=== PATIENT | female | born 1950 | race Two or more races ===

== ENCOUNTER 2017-04-02 21:43 | Observation (INO) | payer OTHER ==
[~2017-04-02] VITALS: Ht 157.5 cm; Wt 61.5 kg
[~2017-04-02 21:43] MED LIST: IBUP-1060 PO
--- NOTE | 2017-04-02 23:15 | PHYS DOC ---
Past Medical History Past Medical History: Diabetes-Type II, Hypertension Past Surgical History: No Surgical History Alcohol Use: None Drug Use: None Social History Narrative: Lives with son Adult General Chief Complaint Chief Complaint: FEVER HPI HPI Patient is a 66 year old female who presents with fever. She is here with his son who is interpreting for her. This started a week ago. She had a little bit of a cough. No vomiting or diarrhea. She has some discomfort in her upper back. She recently traveled to [place] where they have other family members. She was driven. She just got back last night. She however became sick while in [place]. Denies any bites. Son says this morning her temperature was 101. She denies any leg pain or swelling. No chest pain or difficulty breathing. No abdominal pain Review of Systems Review of Systems Constitutional: She has fever and chills Eyes: Denies change in visual acuity, redness, or eye pain HENT: Denies nasal congestion or sore throat Respiratory Slight cough; NO shortness of breath Cardiovascular: No chest pain. GI: Denies abdominal pain, nausea, vomiting, bloody stools or diarrhea : Denies dysuria or hematuria Musculoskeletal: Denies back pain or joint pain Integument: Denies rash or skin lesions Neurologic: Denies headache, focal weakness or sensory changes Endocrine: Denies polyuria or polydipsia Current Medications Current Medications Current Medications Medications (Trade) Dose Ordered Sig/Anuj Start Time Stop Time Status Last Admin Dose Admin Cefepime HCl 2 gm/ Sodium Chloride 100 ml @ 200 mls/hr 1X ONCE 04/02/17 23:30 04/02/17 23:59 DC 04/03/17 00:44 200 MLS/HR Sodium Chloride 1,000 ml @ 1,000 mls/hr 1X ONCE 04/03/17 00:45 04/03/17 01:44 DC 04/03/17 00:44 1,000 MLS/HR Allergies Allergies Allergies Coded Allergies Type Severity Reaction Last Updated Verified No Known Drug Allergies 06/10/16 No Physical Exam Physical Exam Constitutional: Well developed, well nourished, no acute distress, non-toxic appearance. HENT: Normocephalic, atraumatic, bilateral external ears normal, oropharynx moist, no oral exudates, nose normal. Eyes: PERRLA, EOMI, conjunctiva normal, no discharge. Neck: Normal range of motion, no tenderness, supple, no stridor. Cardiovascular:Heart rate regular rhythm, no murmur Lungs & Thorax: Bilateral breath sounds clear to auscultation Abdomen: Bowel sounds normal, soft, no tenderness, no masses, no pulsatile masses. Skin: Warm, dry, no erythema, no rash. Back: No tenderness, no CVA tenderness. Extremities: No tenderness, no cyanosis, no clubbing, ROM intact, no edema. Neurologic: Alert and oriented X 3, normal motor function, normal sensory function, no focal deficits noted. Psychologic: Affect normal, judgement normal, mood normal. Current Patient Data Vital Signs Vital Signs Date Time Temp Pulse Resp B/P (MAP) Pulse Ox O2 Delivery O2 Flow Rate FiO2 04/03/17 01:30 92 18 182/94 (123) 97 Room Air 04/02/17 23:10 98.6 98.6 Lab Values Laboratory Tests Test 04/02/17 23:44 04/03/17 00:45 White Blood Count 8.2 x10^3/uL (4.0-11.0) Red Blood Count 4.24 x10^6/uL (3.50-5.40) Hemoglobin 10.8 g/dL (12.0-15.5) L Hematocrit 34.6 % (36.0-47.0) L Mean Corpuscular Volume 82 fL (79-100) Mean Corpuscular Hemoglobin 26 pg (25-35) Mean Corpuscular Hemoglobin Concent 31 g/dL (31-37) Red Cell Distribution Width 13.1 % (11.5-14.5) Platelet Count 267 x10^3/uL (140-400) Neutrophils (%) (Auto) 77 % (31-73) H Lymphocytes (%) (Auto) 15 % (24-48) L Monocytes (%) (Auto) 6 % (0-9) Eosinophils (%) (Auto) 2 % (0-3) Basophils (%) (Auto) 1 % (0-3) Neutrophils # (Auto) 6.3 x10^3uL (1.8-7.7) Lymphocytes # (Auto) 1.2 x10^3/uL (1.0-4.8) Monocytes # (Auto) 0.5 x10^3/uL (0.0-1.1) Eosinophils # (Auto) 0.1 x10^3/uL (0.0-0.7) Basophils # (Auto) 0.0 x10^3/uL (0.0-0.2) Sodium Level 139 mmol/L (136-145) Potassium Level 3.9 mmol/L (3.5-5.1) Chloride Level 105 mmol/L (98-107) Carbon Dioxide Level 24 mmol/L (21-32) Anion Gap 10 (6-14) Blood Urea Nitrogen 10 mg/dL (7-20) Creatinine 0.8 mg/dL (0.6-1.0) Estimated GFR (Cockcroft-Gault) 71.8 BUN/Creatinine Ratio 13 (6-20) Glucose Level 211 mg/dL (70-99) H Lactic Acid Level 2.1 mmol/L (0.4-2.0) H Calcium Level 9.1 mg/dL (8.5-10.1) Total Bilirubin 0.2 mg/dL (0.2-1.0) Aspartate Amino Transferase (AST) 70 U/L (15-37) H Alanine Aminotransferase (ALT) 36 U/L (14-59) Alkaline Phosphatase 80 U/L (46-116) Total Protein 7.5 g/dL (6.4-8.2) Albumin 2.7 g/dL (3.4-5.0) L Albumin/Globulin Ratio 0.6 (1.0-1.7) L Urine Collection Type Unknown Urine Color Yellow Urine Clarity Clear Urine pH 6.5 Urine Specific [place] 1.010 Urine Protein Negative mg/dL (NEG-TRACE) Urine Glucose (UA) Negative mg/dL (NEG) Urine Ketones (Stick) Negative mg/dL (NEG) Urine Blood Negative (NEG) Urine Nitrite Negative (NEG) Urine Bilirubin Negative (NEG) Urine Urobilinogen Dipstick 0.2 mg/dL (0.2 mg/dL) Urine Leukocyte Esterase Negative (NEG) Urine RBC Occ /HPF (0-2) Urine WBC 1-4 /HPF (0-4) Urine Squamous Epithelial Cells Mod /LPF Urine Bacteria Moderate /HPF (0-FEW) Laboratory Tests 04/02/17 23:44 Laboratory Tests 04/02/17 23:44 EKG EKG EKG as interpreted by myself. Sinus rhythm rate of 95. Nonspecific ST changes. No ST elevation. EKG was 0001 AM Radiology/Procedures Radiology/Procedures Chest x-ray by my interpretation with blunting of the left costophrenic angle. No distinct consolidation seen Course & Med Decision Making Course & Med Decision Making Pertinent Labs and Imaging studies reviewed. (See chart for details) evaluated patient upon arrival. IV NS and blood cultures ordered. Lactic acid drawn. Cefepime IV ordered. Lab back and Lactic acid 2.1. IV fluids initiated. CXR has left costophrenic angle blunting but no consolidation. Urine has bacteria. Cefepime will cover both. Dragon Disclaimer Dragon Disclaimer This electronic medical record was generated, in whole or in part, using a voice recognition dictation system. Departure Departure Impression: Primary Impression: Fever Additional Impression: Urinary tract infection Disposition: ADMITTED INPATIENT Referrals: NO PCP (PCP) Problem Qualifiers Primary Impression: Fever Fever type: unspecified Qualified Codes: R50.9 - Fever, unspecified Additional Impression: Urinary tract infection Urinary tract infection type: site unspecified Hematuria presence: without hematuria Qualified Codes: N39.0 - Urinary tract infection, site not specified ALAN LR MD Apr 02, 2017 23:15
[2017-04-02] MEDS ORDERED: CEFEPIME HCL 2 GM in IV NORMAL SALINE 100ML 100 ML IV ONE (23:30)
[2017-04-02 23:50] LABS: BASO % 1 % (0-3); EOS % 2 % (0-3); HEMATOCRIT 34.6 % (36.0-47.0); HEMOGLOBIN 10.8 g/dL (12.0-15.5); LYMPH # 1.2 x10^3/uL (1.0-4.8); LYMPH % 15 % (24-48); MEAN CORPUSCULAR HEMOGLOBIN 26 pg (25-35); MEAN CORPUSCULAR HGB CONC 31 g/dL (31-37); MEAN CORPUSCULAR VOLUME 82 fL (79-100); MONO % 6 % (0-9); NEUT % 77 % (31-73); PLATELET COUNT 267 x10^3/uL (140-400); RED BLOOD COUNT 4.24 x10^6/uL (3.50-5.40); RED CELL DISTRIBUTION WIDTH 13.1 % (11.5-14.5); WHITE BLOOD COUNT 8.2 x10^3/uL (4.0-11.0)
[2017-04-03 00:07] LABS: ALBUMIN 2.7 g/dL (3.4-5.0); ALBUMIN/GLOBULIN RATIO 0.6 (1.0-1.7); CALCIUM 9.1 mg/dL (8.5-10.1); CREATININE 0.8 mg/dL (0.6-1.0); GFR 71.8; POTASSIUM 3.9 mmol/L (3.5-5.1); TOTAL BILIRUBIN 0.2 mg/dL (0.2-1.0); TOTAL PROTEIN 7.5 g/dL (6.4-8.2)
[2017-04-03] MEDS ORDERED: IV NORMAL SALINE 1000ML BAG 1,000 ML IV ONE (00:45)
[2017-04-03 00:59] LABS: BILIRUBIN,URINE NEGATIVE (NEG); GLUCOSE,URINE NEGATIVE (NEG); NITRITE,URINE NEGATIVE (NEG); PH,URINE 6.5; PROTEIN,URINE NEGATIVE (NEG-TRACE); UROBILINOGEN,URINE 0.2 mg/dL (0.2 mg/dL)
[2017-04-03 01:40] LABS: BACTERIA,URINE MODERATE /HPF (0-FEW); RBC,URINE OCC /HPF (0-2); SQUAMOUS EPITHELIAL CELL,UR MOD /LPF
[2017-04-03] MEDS ORDERED: ONDANSETRON PF 4 MG/2 ML VIAL. IV PRN (03:15)
[2017-04-03] MEDS ORDERED: METF500T4 PO (03:38)
[2017-04-03 05:49] VITALS: BP 147/102
[2017-04-03 07:00] VITALS: BP 165/90
--- NOTE | 2017-04-03 07:58 | EKG ---
[facility] [address] [place] [address] Test Date: 2017-04-03 Test Time: 00:01:06 Pat Name: MIKE ALEJANDRO Department: Room: 576 1 Gender: F Manufacturing Manager: : 1950 Requested By: ALAN LR Order Number: [id number] Reading MD: Sean Merino Measurements Intervals Belle Rate: 95 P: 43 CT: 106 QRS: 21 QRSD: 76 T: 63 QT: 346 QTc: 438 Interpretive Statements SINUS RHYTHM CANNOT RULE OUT ANTEROSEPTAL MYOCARDIAL DAMAGE T ABNORMALITY IN ANTERIOR LEADS Electronically Signed On 04-07-2017 14:46:22 CDT by Sean Merino
--- NOTE | 2017-04-03 08:31 | RAD ---
Indication fever. Protocol study. A single view of the chest was obtained. No prior imaging is available. Heart size is minimally enlarged. There is no congestive heart failure. There is volume loss in the left lower lobe which may reflect pleural fluid and atelectasis. Underlying pneumonia is not entirely excluded. The right hemithorax is clear. IMPRESSION: Volume loss in the left lower lobe. See above discussion. Mild cardiomegaly
[2017-04-03] MEDS ORDERED: CEFEPIME HCL 2 GM in IV NORMAL SALINE 100ML 100 ML IV SCH (09:00)
[2017-04-03 10:57] VITALS: BP 146/79
[2017-04-03] MEDS ORDERED: ACETAMINOPHEN 650 MG/20.3 ML SOLUTION. PEG PRN (12:45)
[2017-04-03] MEDS ORDERED: DEXTROSE 50% 25 GM / 50ML DISP.SYRIN. IV PRN (12:45)
[2017-04-03] MEDS: LISINOPRIL 5 MG TABLET. PO SCH (14:25)
[2017-04-03 15:00] VITALS: BP 148/80
--- NOTE | 2017-04-03 15:00 | RAD ---
Indication abnormal chest x-ray. Axial noncontrast images through the chest were obtained. No prior CT imaging of the chest is available. Note is made of a plain film examination of the chest yesterday. Imaging through the upper abdomen is unremarkable. There are markedly calcified nodules in both lobes of the thyroid right greater than left. These could be further evaluated with nonemergent ultrasound. There are a few mediastinal lymph nodes. Definite pathologic hilar or mediastinal adenopathy is not seen. There is a small left pleural effusion. There is some minimal volume loss at the left lung base compatible with passive atelectasis associated with the pleural fluid. A consolidated pneumonia in either lung is not seen. Small blebs or bulla are seen in the upper lobes. A dominant soft tissue mass in either lung is not seen. There are sclerotic changes seen associated with a midthoracic thoracic vertebral body segment. The etiology is unclear. Paget's disease or fibrous dysplasia could account for the appearance. Given the isolated nature metastatic disease would be less likely but cannot be entirely excluded. If clinically warranted additional evaluation could be obtained with bone scan or MRI. IMPRESSION: No acute or definite significant finding in the chest. Small left pleural effusion. Minimal volume loss at the left lung base likely reflects atelectasis. Sclerotic focus seen associated with a midthoracic vertebral body segment. The etiology is not clear Calcified thyroid nodules PQRS Compliance Statement: One or more of the following individualized dose reduction techniques were utilized for this examination: 1. Automated exposure control 2. Adjustment of the mA and/or kV according to patient size 3. Use of iterative reconstruction technique
--- NOTE | 2017-04-03 15:28 | HP ---
ADMIT DATE: 04/03/2017 CHIEF COMPLAINT: Fevers. 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 She herself relates that she actually had fevers for a whole month and had been in the hospital previously for this and had been given medications for this. However, in discussion with her son, it becomes clear that the patient is demented, and fevers actually just started about a week ago. She refers to having seen her new primary care physician at about a month ago at which time she was given medication for diabetes. The patient endorses leg pain and headaches, which according to son are chronic. She denies any shortness of breath, chest pain, abdominal pain, diarrhea, or dysuria. Her son explains that the fever started about a week ago, not accompanied by any other symptoms apparently and he gave her ibuprofen with resolution of fevers only temporarily. He finally decided to bring her into the hospital. In the Emergency Room, she was found with signs of UTI as well as a questionable infiltrate on chest x-ray and therefore, admitted and placed on cefepime. PAST MEDICAL HISTORY: Hypertension, diabetes, dementia. FAMILY HISTORY: Unknown. SOCIAL HISTORY: Originally from [facility], living with her family here. Continues to smoke about 3-4 cigarettes a day. No alcohol, no drugs. ALLERGIES: No known drug allergies. HOME MEDICATIONS: Reconciled with MAR. REVIEW OF SYSTEMS: Save for headaches and chronic leg pain. Rest of organ system review is negative. PHYSICAL EXAMINATION: VITAL SIGNS: Show blood pressure of 146/79, heart rate of 91, respiratory rate at 22. She is afebrile and has been the entire hospitalization since ER. GENERAL: This is a well-nourished, well-developed, 66-year-old [facility] woman, awake, alert, in no acute distress. HEENT: Shows no scleral icterus. NECK: Supple. Lipoma palpable in the supraclavicular space on the left. No lymphadenopathy. LUNGS: Clear. HEART: Has regular rate and rhythm. ABDOMEN: Has positive bowel sounds, soft, nontender. EXTREMITIES: Show no edema. SKIN: Warm, soft and dry without any rash. LABORATORY DATA: CBC with a WBC of 8.2, hemoglobin 10.8, MCV of 82, platelets of 267. Chemistries with a BUN and creatinine of 10 and 0.8, normal electrolytes, glucose at 211. LFTs with AST at 70, rest is normal. Albumin at 2.7. Urine with 1-2 wbc and moderate bacteria i.e. a dirty collection. IMAGING STUDIES: Chest x-ray obtained in the Emergency Room shows volume loss in the left lower lobe, which may reflect pleural fluid and/or atelectasis. Pneumonia cannot be excluded. ASSESSMENT AND PLAN: The patient is a 66-year-old woman with reported fevers for the past week. There is no clear cut sign of infection by clinical exam or labs or imaging. We will stop cefepime for now. Monitor her vital signs closely. Because of the question in her chest x-ray, we will obtain a noncontrast CT to further elucidate. Her blood sugars are currently poorly controlled. She is on metformin at home. We will add insulin sliding scale to this here. Blood pressure likewise is elevated. We will start lisinopril. Prophylaxis will be obtained with Lovenox. MARCO KUMARI MD DR: KATHRIN/nts JOB#: [id number] / [id number] RAFIQ
[2017-04-03] MEDS ORDERED: metFORMIN 500 MG TABLET PO SCH (17:00)
[2017-04-03] MEDS: metFORMIN 500 MG TABLET PO SCH (17:11)
[2017-04-03] MEDS: INSULIN ASPART 300 UNITS/3 ML INSULN.PEN SQ SCH (17:28)
[2017-04-03 19:00] VITALS: BP 138/81
[2017-04-03 23:00] VITALS: BP 138/81
--- NOTE | 2017-04-04 02:00 | ACF ---
Admission Forms Criteria URINARY COMPLICATIONS Clinical Indications for Inpatient Care (Place 'X' for any and all applicable criteria): Ongoing inpatient care may be indicated for urinary complications with ANY ONE of the following: [ X]I. Urinary tract infection requiring inpatient care as indicated by ANY ONE of the following(8)(19)(20): [ ]a) Severe symptoms (eg, high fever, severe pain) [ ]b) Vomiting or dehydration requiring ongoing inpatient care [ X]c) IV antibiotic needs that cannot be managed at lower level of care [ ]d) Hemodynamic instability [ ]e) Obstruction of collecting system by stone or tumor [ ]II. Urinary retention requiring drainage or surgery (3)(4)(5)(17)(18) [ ]III. Renal failure (Use Renal Failure Criteria for further information.) [ ]IV. Oliguria(30) [ ]V. Post obstructive diuresis requiring close monitoring of urine output and intravenous compensation for excessive fluid losses(33) Extended stay beyond goal length of stay for primary condition may be needed until ALL of the following are present(3)(4)(5)(8): [ ]a) Renal function (creatinine) at baseline, or daily decreases in creatinine consistent with renal function return [ ]b) Voiding adequately or with urinary catheter or percutaneous suprapubic tube and management regimen in place that is performable at lower level of care. [ ]c) Urine output adequate [ ]d) Fever absent or resolving [ ]e) Infection absent or treatable at next level of care The original [employer] content created by [employer] has been revised. The portions of the content which have been revised are identified through the use of italic text or in bold, and [facility] has neither reviewed nor approved the modified material. All other unmodified content is copyright [facility] Please see references footnoted in the original [facility] edition 2016 Admission Criteria Met?: Yes DERRELL REGAN Apr 04, 2017 02:00
[2017-04-04 03:21] VITALS: BP 142/86
[2017-04-04 04:56] LABS: BASO % 1 % (0-3); EOS % 2 % (0-3); HEMATOCRIT 34.4 % (36.0-47.0); HEMOGLOBIN 11.1 g/dL (12.0-15.5); LYMPH # 1.4 x10^3/uL (1.0-4.8); LYMPH % 18 % (24-48); MEAN CORPUSCULAR HEMOGLOBIN 26 pg (25-35); MEAN CORPUSCULAR HGB CONC 32 g/dL (31-37); MEAN CORPUSCULAR VOLUME 81 fL (79-100); MONO % 6 % (0-9); NEUT % 73 % (31-73); PLATELET COUNT 279 x10^3/uL (140-400); RED BLOOD COUNT 4.28 x10^6/uL (3.50-5.40); RED CELL DISTRIBUTION WIDTH 13.3 % (11.5-14.5); WHITE BLOOD COUNT 7.9 x10^3/uL (4.0-11.0)
[2017-04-04 07:00] VITALS: BP 139/94
[2017-04-04] MEDS: LISINOPRIL 5 MG TABLET. PO SCH (08:34)
[2017-04-04] MEDS: metFORMIN 500 MG TABLET PO SCH ×2 (08:34→16:44)
[2017-04-04] MEDS: INSULIN ASPART 300 UNITS/3 ML INSULN.PEN SQ SCH ×3 (08:39→16:48)
[2017-04-04 10:58] VITALS: BP 142/81
[2017-04-04 14:59] VITALS: BP 135/85
--- NOTE | 2017-04-04 15:08 | PDOC ---
PROGRESS NOTES Chief Complaint Chief Complaint Fevers ASSESSMENT AND PLAN: 1. Fevers: no infectious source. no recurrence in hospital. received cefepime x1 for suspected UTI, but only low grade nina; CT chest neg as well. 2. DM: poorly controlled. metformin and ISS. just recently started. will leave med adjustment to PCP 3. HTN: previously not on meds. lisinopril started 4. Dementia: at baseline per son 5. Prophylaxis: Lovenox 6. 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 some (chronic) aches and pain. no acute issues Vitals Vitals Vital Signs Date Time Temp Pulse Resp B/P (MAP) Pulse Ox O2 Delivery O2 Flow Rate FiO2 04/04/17 14:59 97.9 84 18 135/85 (102) 98 Room Air 97.9 Physical Exam General: Alert, Cooperative Heart: Regular rate Lungs: Clear Abdomen: Normal bowel sounds, No tenderness Extremities: No edema Skin: No rashes Labs LABS Laboratory Tests Test 04/03/17 16:37 04/04/17 04:00 04/04/17 07:40 04/04/17 10:33 Glucose (Fingerstick) 320 mg/dL (70-99) 152 mg/dL (70-99) 112 mg/dL (70-99) White Blood Count 7.9 x10^3/uL (4.0-11.0) Red Blood Count 4.28 x10^6/uL (3.50-5.40) Hemoglobin 11.1 g/dL (12.0-15.5) Hematocrit 34.4 % (36.0-47.0) Mean Corpuscular Volume 81 fL (79-100) Mean Corpuscular Hemoglobin 26 pg (25-35) Mean Corpuscular Hemoglobin Concent 32 g/dL (31-37) Red Cell Distribution Width 13.3 % (11.5-14.5) Platelet Count 279 x10^3/uL (140-400) Neutrophils (%) (Auto) 73 % (31-73) Lymphocytes (%) (Auto) 18 % (24-48) Monocytes (%) (Auto) 6 % (0-9) Eosinophils (%) (Auto) 2 % (0-3) Basophils (%) (Auto) 1 % (0-3) Neutrophils # (Auto) 5.8 x10^3uL (1.8-7.7) Lymphocytes # (Auto) 1.4 x10^3/uL (1.0-4.8) Monocytes # (Auto) 0.5 x10^3/uL (0.0-1.1) Eosinophils # (Auto) 0.2 x10^3/uL (0.0-0.7) Basophils # (Auto) 0.0 x10^3/uL (0.0-0.2) MARCO KUMARI MD Apr 04, 2017 15:08
[2017-04-04] MEDS ORDERED: LISI-338 PO (16:30)
--- NOTE | 2017-04-07 00:12 | DS ---
DATE OF DISCHARGE: 04/04/2017 CHIEF COMPLAINT: UTI. HOSPITAL COURSE: The patient is a 66-year-old [facility] woman who presented with a 1-week history of recurrent fevers without apparent etiology. She had been diagnosed with diabetes recently at [facility] and had been started on metformin. Her son brought her in with recurrent fevers. In the ER, she was found with possibly a UTI and admitted for this. Further workup, however, revealed no urinary tract infection. Fever is completely resolved. Antibiotics were held and the patient was discharged on the 04/04/2017 to home. The patient was found to be mildly hypertensive. Given her recent diagnosis of diabetes, she should be started on an KRISTEL inhibitor; 5 mg of lisinopril was prescribed in hospital and at discharge. DISCHARGE PHYSICAL EXAMINATION: VITAL SIGNS: Blood pressure of 135/85, heart rate of 84, respiratory rate at 18. She is afebrile. GENERAL: This is a well-nourished 66-year-old [facility] woman, alert, slightly confused, in no acute distress. HEENT: Shows no scleral icterus. Dentition is poor. LUNGS: Clear. HEART: Has regular rate and rhythm. ABDOMEN: Has positive bowel sounds, soft, nontender. EXTREMITIES: Show no edema. DISCHARGE DIAGNOSIS: Fevers. DISCHARGE DISPOSITION: To home. DISCHARGE CONDITION: Improved. DISCHARGE MEDICATIONS: Please refer to MAR. DISCHARGE INSTRUCTIONS: The patient will follow up with PCP. MARCO KUMARI MD DR: KATHRIN/nts JOB#: [id number] / [id number]
== END 2017-04-04 18:24 | disposition home or self-care (01) ==
LOC: ER 21:43 → 5 SOUTH 04-03 02:55
PROVIDERS: ADMIT Internal Medicine; ATTEND Internal Medicine
DX: R50.9 Fever, unspecified (principal); I10 Essential (primary) hypertension; E11.9 Type 2 diabetes mellitus without complications; F03.90 Unspecified dementia, unspecified severity, without behavioral disturbance, psychotic disturbance, mood disturbance, and anxiety; G89.29 Other chronic pain; N39.0 Urinary tract infection, site not specified; F17.210 Nicotine dependence, cigarettes, uncomplicated
CPT/HCPCS: 36415; 71010; 71250; 80053; 81001; 82962; 83605; 85027; 87040; 87086; 93005; 96365; 96372; 96375; 99285; G0378; J0692; J1815; J7030; G0379

== ENCOUNTER 2018-08-25 15:04 | Emergency (ER) | payer OTHER ==
[~2018-08-25] VITALS: Ht 152.4 cm; Wt 61.2 kg
[~2018-08-25 15:04] MED LIST changes: +LISI-338 PO; +METF500T16 PO
[2018-08-25 15:47] LABS: BILIRUBIN,URINE NEGATIVE (NEG); CLARITY,URINE CLEAR; COLOR,URINE YELLOW; NITRITE,URINE NEGATIVE (NEG); PROTEIN,URINE NEGATIVE (NEG-TRACE); UROBILINOGEN,URINE 0.2 mg/dL (0.2 mg/dL)
[2018-08-25 15:57] LABS: BACTERIA,URINE 0 /HPF (0-FEW); RBC,URINE 0 /HPF (0-2); SQUAMOUS EPITHELIAL CELL,UR FEW /LPF; WBC,URINE 20-40 /HPF (0-4); YEAST,URINE PRESENT /HPF
[2018-08-25] MEDS ORDERED: CEPH-264 PO (16:11)
[2018-08-25] MEDS ORDERED: CLOT15CR4 TP (16:11)
--- NOTE | 2018-08-25 16:11 | PHYS DOC ---
Past Medical History Past Medical History: Diabetes-Type II, Hypertension Past Surgical History: No Surgical History Alcohol Use: None Drug Use: None Adult General Chief Complaint Chief Complaint: VAGINAL PROBLEM HPI HPI Patient is a 67 year old female who comes to the emergency Department today complaining of a itchy rash in her bilateral groins and labia for the last week. Patient denies any vaginal discharge, vaginal bleeding, abdominal pain, nausea, vomiting, or diarrhea. She reports pain with urination. Patient denies any hematuria or incontinence. Patient states she has been putting Vaseline on the rash but has not been helping to reduce her symptoms. Patient denies any irregular vaginal odor or foul smelling urine. Review of Systems Review of Systems Constitutional: Denies fever or chills [] Eyes: Denies change in visual acuity, redness, or eye pain [] HENT: Denies nasal congestion or sore throat [] Respiratory: Denies cough or shortness of breath [] Cardiovascular: No additional information not addressed in HPI [] GI: Denies abdominal pain, nausea, vomiting, or diarrhea [] : Denies incontinence or hematuria; reports dysuria Integument:See HPI Neurologic: Denies headache, focal weakness or sensory changes [] All other systems were reviewed and found to be within normal limits, except as documented in this note. Allergies Allergies Allergies Coded Allergies Type Severity Reaction Last Updated Verified No Known Drug Allergies 06/10/16 No Physical Exam Physical Exam Constitutional: Well developed, well nourished, no acute distress, non-toxic appearance. [] HENT: Normocephalic, atraumatic, bilateral external ears normal, nose normal. [] : scaly erythremic rash noted in bilateral groins and external labia consistent with jock itch, no irregular vaginal discharge or odor noted. Skin: Warm, dry, Neurologic: Alert and oriented X 3, normal motor function, normal sensory function, no focal deficits noted. [] Psychologic: Affect normal, judgement normal, mood normal. [] Current Patient Data Vital Signs Vital Signs Date Time Temp Pulse Resp B/P (MAP) Pulse Ox O2 Delivery O2 Flow Rate FiO2 08/25/18 16:31 196/100 (132) 08/25/18 15:25 97.8 98 16 95 Room Air 97.8 Lab Values Laboratory Tests Test 08/25/18 15:16 Urine Collection Type Unknown Urine Color Yellow Urine Clarity Clear Urine pH 5.0 Urine Specific [place] 1.025 Urine Protein Negative mg/dL (NEG-TRACE) Urine Glucose (UA) >=1000 mg/dL (NEG) Urine Ketones (Stick) Negative mg/dL (NEG) Urine Blood Negative (NEG) Urine Nitrite Negative (NEG) Urine Bilirubin Negative (NEG) Urine Urobilinogen Dipstick 0.2 mg/dL (0.2 mg/dL) Urine Leukocyte Esterase Negative (NEG) Urine RBC 0 /HPF (0-2) Urine WBC 20-40 /HPF (0-4) Urine Squamous Epithelial Cells Few /LPF Urine Bacteria 0 /HPF (0-FEW) Urine Yeast Present /HPF EKG EKG [] Radiology/Procedures Radiology/Procedures [] Course & Med Decision Making Course & Med Decision Making Pertinent Labs and Imaging studies reviewed. (See chart for details) [] Dragon Disclaimer Dragon Disclaimer This electronic medical record was generated, in whole or in part, using a voice recognition dictation system. Departure Departure Impression: Primary Impression: Jock itch Additional Impressions: UTI (urinary tract infection) Hypertension Disposition: 01 HOME, SELF-CARE Condition: STABLE Referrals: JENN STEPHEN MD (PCP) Patient Instructions: Jock Itch, [id number], Urinary Tract Infection, Easy-to -Read Additional Instructions: Fill prescription(s) and use as directed. Take your blood pressure medication as prescribed, recommend that you check your BP twice daily and keep a log of blood pressures. Avoid bladder irritants such as caffeine, carbonation, and spicy foods. Increase clear fluids. Follow up with your primary care doctor next week for recheck of rash and blood pressure, return to the ER if symptoms worsen. Scripts Cephalexin (KEFLEX) 500 Mg Capsule 1 CAP PO BID, #14 CAP 0 Refills Prov: [employer] 08/25/18 Clotrimazole (CLOTRIMAZOLE) 15 Gm Cream..g. 1 BASILIO TP BID, #30 GM 0 Refills Prov: [employer] 08/25/18 Problem Qualifiers Additional Impressions: UTI (urinary tract infection) Urinary tract infection type: site unspecified Hematuria presence: without hematuria Qualified Codes: N39.0 - Urinary tract infection, site not specified [employer] Aug 25, 2018 16:11
[2018-08-25 16:39] VITALS: BP 208/102
[2018-08-25] MEDS ORDERED: cloNIDine HCL 0.1 MG TABLET PO ONE (16:45)
== END 2018-08-25 16:39 | disposition home or self-care (01) ==
LOC: ER 15:04
DX: N39.0 Urinary tract infection, site not specified (principal); B35.6 Tinea cruris; I10 Essential (primary) hypertension; E11.9 Type 2 diabetes mellitus without complications
CPT/HCPCS: 81001; 87086; 99283

== ENCOUNTER 2018-10-31 02:08 | Emergency (ER) | payer MEDICARE, OTHER ==
[~2018-10-31] VITALS: Ht 154.9 cm; Wt 54.4 kg
[~2018-10-31 02:08] MED LIST changes: +CEPH-264 PO; +CLOT15CR4 TP
[2018-10-31 02:17] VITALS: BP 160/99
[2018-10-31] MEDS ORDERED: ACETAMINOPHEN 500 MG TABLET PO ONE (03:30)
[2018-10-31 03:48] LABS: INFLUENZA A PATIENT NEGATIVE (NEGATIVE); INFLUENZA B PATIENT NEGATIVE (NEGATIVE)
[2018-10-31 04:35] LABS: BILIRUBIN,URINE NEGATIVE (NEG); CLARITY,URINE CLEAR; COLOR,URINE YELLOW; NITRITE,URINE NEGATIVE (NEG); PH,URINE 5.5; PROTEIN,URINE NEGATIVE (NEG-TRACE); UROBILINOGEN,URINE 0.2 mg/dL (0.2 mg/dL)
[2018-10-31 04:56] LABS: BACTERIA,URINE FEW /HPF (0-FEW); RBC,URINE OCC /HPF (0-2); SQUAMOUS EPITHELIAL CELL,UR MOD /LPF
--- NOTE | 2018-10-31 05:47 | PHYS DOC ---
Past Medical History Past Medical History: Diabetes-Type II, Hypertension Past Surgical History: No Surgical History Alcohol Use: None Drug Use: None Adult General Chief Complaint Chief Complaint: FEVER HPI HPI Patient is a 67 year old F P/W CC OF COUGH VOMITING, SUBJECTIVE FEVER AND SORE THROAT. HX OF HTN CHECKED INTO ER WITH SIMILAR SYMPTOMS. MODERATE SYMPTOMS X TWO DAYS, NO ALLEVIATING FACTORS Review of Systems Review of Systems Constitutional: Eyes: Denies change in visual acuity, redness, or eye pain [] HENT: Denies nasal congestion or sore throat [] Respiratory: Cardiovascular: No additional information not addressed in HPI [] GI: Denies abdominal pain, bloody stools or diarrhea [] : Denies dysuria or hematuria [] Neurologic: Denies headache, focal weakness or sensory changes [] Endocrine: Denies polyuria or polydipsia [] All other systems were reviewed and found to be within normal limits, except as documented in this note. Current Medications Current Medications Current Medications Medications (Trade) Dose Ordered Sig/Anuj Start Time Stop Time Status Last Admin Dose Admin Acetaminophen (Tylenol) 1,000 mg 1X ONCE 10/31/18 03:30 10/31/18 03:32 DC 10/31/18 03:21 1,000 MG Allergies Allergies Allergies Coded Allergies Type Severity Reaction Last Updated Verified No Known Drug Allergies 06/10/16 No Physical Exam Physical Exam Constitutional: Well developed, well nourished, no acute distress, non-toxic appearance. [] HENT: Normocephalic, atraumatic, bilateral external ears normal, oropharynx moist, no oral exudates, nose normal. [] Eyes: PERRLA, EOMI, conjunctiva normal, no discharge. [] Neck: Normal range of motion, no tenderness, supple, no stridor. [] Cardiovascular:Heart rate regular rhythm, no murmur [] Lungs & Thorax: Bilateral breath sounds clear to auscultation [] Abdomen: Bowel sounds normal, soft, no tenderness, no masses, no pulsatile masses. [] Skin: Warm, dry, no erythema, no rash. [] Back: No tenderness, no CVA tenderness. [] Extremities: No tenderness, no cyanosis, no clubbing, ROM intact, no edema. [] Neurologic: Alert and oriented X 3, normal motor function, normal sensory function, no focal deficits noted. [] Psychologic: Affect normal, judgement normal, mood normal. [] Current Patient Data Vital Signs Vital Signs Date Time Temp Pulse Resp B/P (MAP) Pulse Ox O2 Delivery O2 Flow Rate FiO2 10/31/18 02:17 97.5 86 20 160/99 (119) 97 Room Air 97.5 Lab Values Laboratory Tests Test 10/31/18 03:20 10/31/18 04:28 Influenza Type A Antigen Negative (NEGATIVE) Influenza Type B Antigen Negative (NEGATIVE) Urine Collection Type Unknown Urine Color Yellow Urine Clarity Clear Urine pH 5.5 Urine Specific [place] 1.020 Urine Protein Negative mg/dL (NEG-TRACE) Urine Glucose (UA) Negative mg/dL (NEG) Urine Ketones (Stick) Negative mg/dL (NEG) Urine Blood Negative (NEG) Urine Nitrite Negative (NEG) Urine Bilirubin Negative (NEG) Urine Urobilinogen Dipstick 0.2 mg/dL (0.2 mg/dL) Urine Leukocyte Esterase Small (NEG) Urine RBC Occ /HPF (0-2) Urine WBC 5-10 /HPF (0-4) Urine Squamous Epithelial Cells Mod /LPF Urine Bacteria Few /HPF (0-FEW) Urine Mucus Mod /LPF EKG EKG [] Radiology/Procedures Radiology/Procedures [] Impressions: CXR MY READ NEG ACUTE Course & Med Decision Making Course & Med Decision Making Pertinent Labs and Imaging studies reviewed. (See chart for details) 67 YO F P/W COUGH SUBJ FEVER SORE THROAT VOMITING AT HOME. CXR, FLU SWAB RAPID STREP NEG ACUTE. VITALS LOOK PRETTY GOOD. U/A LIKELY CONTAMINANT, NO DYSURIA, WILL SEND FOR CULTURE. PT OVERALL WELL APPEARING SUPPLE NECK, REASSURANCE PROVIDED, RETURN PREC DISCUSSED [] Dragon Disclaimer Dragon Disclaimer This electronic medical record was generated, in whole or in part, using a voice recognition dictation system. Departure Departure Impression: Primary Impression: Viral syndrome Disposition: HOME, SELF-CARE Condition: STABLE Patient Instructions: Viral Syndrome RODRIGO DIEGO MD Oct 31, 2018 05:47
--- NOTE | 2018-10-31 07:57 | RAD ---
Portable chest, 10/31/2018: HISTORY: Fever Comparison is made to a study from 04/03/2017. The heart is enlarged. There is calcific plaquing of the aorta. The pulmonary vascularity is normal. No pulmonary infiltrate is seen. There is no evidence of pleural fluid. The bony structures are demineralized. IMPRESSION: 1. Cardiomegaly and aortic atherosclerosis. 2. No acute cardiopulmonary abnormality is detected. Electronically signed by: Jeb Thompson MD (10/31/2018 7:54 AM) [facility]
== END 2018-10-31 05:40 | disposition home or self-care (01) ==
LOC: ER 02:08
DX: B34.9 Viral infection, unspecified (principal); E11.9 Type 2 diabetes mellitus without complications; I10 Essential (primary) hypertension
CPT/HCPCS: 71045; 81001; 87070; 87086; 87804; 87880; 99284

== ENCOUNTER 2021-04-17 11:48 | Emergency (ER) | payer OTHER ==
[~2021-04-17] VITALS: Ht 152.4 cm; Wt 52.5 kg
[~2021-04-17 11:48] MED LIST changes: +CLOT15CR23 TP; -CLOT15CR4 TP; -LISI-338 PO; +LISI-517 PO
[2021-04-17] MEDS ORDERED: LABETALOL 20 MG/4 ML DISP.SYRIN. IVP ONE (13:15)
[2021-04-17 13:40] LABS: BASO # 0.1 x10^3/uL (0.0-0.2); BASO % 1 % (0-3); EOS # 0.2 x10^3/uL (0.0-0.7); EOS % 2 % (0-3); HEMATOCRIT 34.2 % (36.0-47.0); HEMOGLOBIN 11.2 g/dL (12.0-15.5); LYMPH # 1.6 x10^3/uL (1.0-4.8); LYMPH % 19 % (24-48); MEAN CORPUSCULAR HEMOGLOBIN 27 pg (25-35); MEAN CORPUSCULAR HGB CONC 33 g/dL (31-37); MEAN CORPUSCULAR VOLUME 81 fL (79-100); MONO # 0.4 x10^3/uL (0.0-1.1); MONO % 5 % (0-9); NEUT # 6.2 x10^3/uL (1.8-7.7); NEUT % 74 % (31-73); PLATELET COUNT 220 x10^3/uL (140-400); RED BLOOD COUNT 4.22 x10^6/uL (3.50-5.40); RED CELL DISTRIBUTION WIDTH 14.7 % (11.5-14.5); WHITE BLOOD COUNT 8.4 x10^3/uL (4.0-11.0)
[2021-04-17 13:52] LABS: CALCIUM 9.4 mg/dL (8.5-10.1); CREATININE 0.9 mg/dL (0.6-1.0); GFR 61.9; POTASSIUM 4.1 mmol/L (3.5-5.1)
--- NOTE | 2021-04-17 13:54 | RAD ---
EXAM: Chest, single view. HISTORY: Shortness of breath. COMPARISON: 10/31/2018. FINDINGS: A frontal view of the chest is obtained. There is stable mild central predominant interstit ial prominence. There is no jaquelin congestion. There is no focal infiltrate, protrusion or pneumothora x. There is a stable prominent cardiac silhouette. IMPRESSION: No acute pulmonary finding. Electronically signed by: Natalie Martinez MD (04/17/2021 1:51 PM) [id number]
[2021-04-17 13:58] LABS: ALBUMIN 3.3 g/dL (3.4-5.0); ALBUMIN/GLOBULIN RATIO 0.8 (1.0-1.7); C-REACTIVE PROTEIN 4.1 mg/L (0-3.3); TOTAL BILIRUBIN 0.2 mg/dL (0.2-1.0); TOTAL PROTEIN 7.5 g/dL (6.4-8.2)
--- NOTE | 2021-04-17 14:15 | ED.ADGEN ---
Past Medical History Past Medical History: Diabetes-Type II, Hypertension Past Surgical History: No Surgical History Smoking Status: Never Smoker Alcohol Use: None Drug Use: None General Adult EDM: Chief Complaint: SORE THROAT HPI: HPI: Of note, history is significantly limited due to language barrier. An full time staff interpreter was used, however patient does not respond to the full time staff interpreter. Placement Coordinator did interpret anything the patient said on her own but the patient did not answer any of the interpreters questions. Patient is complaining of right-sided pain in her neck and lower jaw for an unknown amount of time. Unknown whether there are additional symptoms. Patient does have a history of hypertension and is hypertensive. Unclear whether she is taking her medications. Review of Systems: Review of Systems: Unable to obtain Current Medications: Current Medications Medications (Trade) Dose Ordered Sig/Anuj Start Time Stop Time Status Last Admin Dose Admin Labetalol HCl (Normodyne Iv Push) 20 mg 1X ONCE 04/17/21 13:15 04/17/21 13:16 DC 04/17/21 14:22 20 MG Allergies: Allergies: Allergies Coded Allergies Type Severity Reaction Last Updated Verified No Known Drug Allergies 06/10/16 No Physical Exam: PE: General: Awake, alert, NAD. Well Nourished, well hydrated. Cooperative HEENT: Atraumatic, EOMI, PERRL, airway patent, moist oral mucosa, posterior oropharynx appears normal Neck: Supple, trachea midline Respiratory: CTA bilaterally, normal effort, no wheezing/crackles CV: RRR, no murmur, cap refill <2 GI: Soft, nondistended, nontender, no masses MSK: No obvious deformities Skin: Warm, dry, intact Neuro: A&O x3, speech NL, sensory and motor grossly intact, no focal deficits Psych: Normal affect, normal mood, not suicidal or homicidal Current Patient Data: Labs: Laboratory Tests Test 04/17/21 13:13 04/17/21 13:28 SARS-CoV-2 Antigen (Rapid) Negative (NEGATIVE) White Blood Count 8.4 x10^3/uL (4.0-11.0) Red Blood Count 4.22 x10^6/uL (3.50-5.40) Hemoglobin 11.2 g/dL (12.0-15.5) L Hematocrit 34.2 % (36.0-47.0) L Mean Corpuscular Volume 81 fL (79-100) Mean Corpuscular Hemoglobin 27 pg (25-35) Mean Corpuscular Hemoglobin Concent 33 g/dL (31-37) Red Cell Distribution Width 14.7 % (11.5-14.5) H Platelet Count 220 x10^3/uL (140-400) Neutrophils (%) (Auto) 74 % (31-73) H Lymphocytes (%) (Auto) 19 % (24-48) L Monocytes (%) (Auto) 5 % (0-9) Eosinophils (%) (Auto) 2 % (0-3) Basophils (%) (Auto) 1 % (0-3) Neutrophils # (Auto) 6.2 x10^3/uL (1.8-7.7) Lymphocytes # (Auto) 1.6 x10^3/uL (1.0-4.8) Monocytes # (Auto) 0.4 x10^3/uL (0.0-1.1) Eosinophils # (Auto) 0.2 x10^3/uL (0.0-0.7) Basophils # (Auto) 0.1 x10^3/uL (0.0-0.2) Sodium Level 140 mmol/L (136-145) Potassium Level 4.1 mmol/L (3.5-5.1) Chloride Level 104 mmol/L (98-107) Carbon Dioxide Level 24 mmol/L (21-32) Anion Gap 12 (6-14) Blood Urea Nitrogen 13 mg/dL (7-20) Creatinine 0.9 mg/dL (0.6-1.0) Estimated GFR (Cockcroft-Gault) 61.9 BUN/Creatinine Ratio 14 (6-20) Glucose Level 193 mg/dL (70-99) H Calcium Level 9.4 mg/dL (8.5-10.1) Total Bilirubin 0.2 mg/dL (0.2-1.0) Aspartate Amino Transferase (AST) 14 U/L (15-37) L Alanine Aminotransferase (ALT) 13 U/L (14-59) L Alkaline Phosphatase 67 U/L (46-116) Troponin I Quantitative < 0.017 ng/mL (0.000-0.055) C-Reactive Protein, Quantitative 4.1 mg/L (0-3.3) H Total Protein 7.5 g/dL (6.4-8.2) Albumin 3.3 g/dL (3.4-5.0) L Albumin/Globulin Ratio 0.8 (1.0-1.7) L Laboratory Tests 04/17/21 13:28 Laboratory Tests 04/17/21 13:28 Vital Signs: Vital Signs Date Time Temp Pulse Resp B/P (MAP) Pulse Ox O2 Delivery O2 Flow Rate FiO2 04/17/21 15:25 82 17 220/90 (133) 97 Room Air 04/17/21 12:33 97.8 97.8 EKG: EKG: [] Heart Score: C/O Chest Pain: N/A Risk Factors: Risk Factors: DM, Current or recent (<one month) smoker, HTN, HLP, family history of CAD, obesity. Risk Scores: Score 0 - 3: 2.5% MACE over next 6 weeks - Discharge Home Score 4 - 6: 20.3% MACE over next 6 weeks - Admit for Clinical Observation Score 7 - 10: 72.7% MACE over next 6 weeks - Early Invasive Strategies Radiology/Procedures: Radiology/Procedures: [] Course & Med Decision Making: Course & Med Decision Making Pertinent Labs and Imaging studies reviewed. (See chart for details) Patient presents to the emergency room complaining of pain under the right side of her jaw. Patient's oropharynx appears normal. Tongue appears normal. Teeth appear normal. It is very difficult to obtain a history from the patient. She is significantly hypertensive. Given this a full work-up will be done including lab work, CT of the face, chest x-ray. CT shows possible abscesses. Patient is requesting to leave. Blood pressure remains high. Patient has requested to leave AGAINST MEDICAL ADVICE. I have discussed the benefits of staying for a full work up and the patient would like to leave. I discussed the risks of leaving including but not limited to , permenant end-organ damage, worsening of condition and patient stated understanding. Patient signed out against medical advice. Dragon Disclaimer: Dragon Disclaimer: This electronic medical record was generated, in whole or in part, using a voice recognition dictation system. Departure Departure Impression: Primary Impression: Jaw pain Additional Impression: Hypertension Disposition: LEFT AGAINST MEDICAL ADVICE Condition: GUARDED Referrals: JENN STEPHEN MD (PCP) Problem Qualifiers RENAN HERCULES MD Apr 17, 2021 14:15
--- NOTE | 2021-04-17 14:28 | RAD ---
PQRS Compliance Statement: One or more of the following individualized dose reduction techniques were utilized for this examinat ion: 1. Automated exposure control 2. Adjustment of the mA and/or kV according to patient size 3. Use of iterative reconstruction technique CT MAXILLOFACIAL WITHOUT CONTRAST, CT NECK SOFT TISSUE WITHOUT CONTRAST 04/17/2021 1:31 PM Indication: Throat and tongue pain COMPARISON: None available. TECHNIQUE: Multiple axial CT images of the maxillofacial structures and neck soft tissues were obtain ed without intravenous contrast. Coronal and sagittal reformats are provided. FINDINGS: Ventricles, sulci and basal cisterns are prominent compatible with mild generalized cerebral volume l oss. Mild cerebellar volume loss. Orbits are normal in appearance. Osseous orbits are intact. Globes are spherical and contour. No lens dislocation. No intraconal or extraconal soft tissue mass. Extraoc ular muscles are intact. Optic nerves appear normal. Ostiomeatal units are widely patent. Mild mucosal thickening of the right maxillary sinus. Skull base is intact. No osseous erosions are identified. Nasal septum is predominantly midline. Periapical ela ency is identified involving the left maxillary molars and left mandibular premolar. Temporomandibula r joints are intact. Varnish Inspector space is normal. Oral cavity, floor of mouth and sublingual space appear normal. Parotid a nd submandibular glands are intact. No sialolithiasis. Parapharyngeal fat is preserved. There is no retropharyngeal lymphadenopathy. Fossa of Rosenmuller ap pears intact. Mild asymmetry of the right tonsil which could be associated with tonsillitis. Limited evaluation without intravenous contrast. Hypopharynx including the epiglottis, vallecula and piriform sinuses appear normal. Larynx and trachea are intact. Dense calcified nodules identified within the thyroid gland with the right thyroid nodule measuring 2.2 cm. Mild centrilobular pulmonary emphysema. No pathologically enlarged cervical lymph nodes. Left level 2 cervical lymph node measures 9 mm by short axis. Mastoid air cells are well aerated. IMPRESSION: 1. Periapical lucency involving the left mandibular premolar and maxillary molars may be associated w ith periapical granuloma or abscesses. 2. Mild right pharyngeal prominence could reflect tonsillitis. Correlate with direct visualization. N o findings to suggest abscess or retropharyngeal effusion. 3. Calcified right thyroid nodule measures 2.2 cm. Nonemergent thyroid ultrasound could be of benefit for further evaluation. 4. No pathologically enlarged cervical lymph nodes. Electronically signed by: Nilsa Little MD (04/17/2021 2:26 PM) [facility]
--- NOTE | 2021-04-17 15:40 | EKG ---
[facility] [address] [place] [id number] Test Date: 2021-04-17 Test Time: 13:21:40 Pat Name: MIKE ALEJANDRO Department: Room: Gender: F Senior Counsel: : 1950 Requested By: RENAN HERCULES Order Number: [id number] Reading MD: Measurements Intervals Nye Rate: 86 P: 62 SD: 120 QRS: 29 QRSD: 82 T: -1 QT: 302 QTc: 364 Interpretive Statements SINUS RHYTHM LEFT ATRIAL ABNORMALITY ST & T ABNORMALITY, CONSIDER INFERIOR ISCHEMIA OR LEFT VENTRICULAR STRAIN ABNORMAL ECG RI6.02 No previous ECG available for comparison
[2021-04-17 16:34] VITALS: BP 214/104
--- NOTE | 2021-04-18 16:22 | NUR ---
IP: Informed pt and daughter of negative covid results. Bother verbalized understanding.
== END 2021-04-17 16:54 | disposition left against medical advice (07) ==
LOC: ER 11:48
DX: I10 Essential (primary) hypertension (principal); R68.84 Jaw pain; M54.2 Cervicalgia; Z20.822 Contact with and (suspected) exposure to COVID-19; E11.9 Type 2 diabetes mellitus without complications
CPT/HCPCS: 36415; 70486; 70490; 71045; 80053; 84484; 85025; 86140; 87070; 87426; 87880; 93005; 96374; 99285; J3490; U0003; U0005

== ENCOUNTER 2021-05-02 19:02 | Inpatient (IN) | payer OTHER ==
[~2021-05-02] VITALS: Ht 152.4 cm; Wt 53.2 kg
[2021-05-02] MEDS ORDERED: fentaNYL PF VIAL 100 MCG/2 ML VIAL IV ONE (20:00)
[2021-05-02] MEDS ORDERED: IV NORMAL SALINE 1000ML BAG 1,000 ML IV ONE (20:00)
--- NOTE | 2021-05-02 20:05 | PHYS DOC ---
Past Medical History Past Medical History: Diabetes-Type II, Hypertension Past Surgical History: No Surgical History Smoking Status: Never Smoker Alcohol Use: None Drug Use: None General Adult EDM: Chief Complaint: MECHANICAL FALL HPI: HPI: Patient is a 70 year old female who presents with left wrist pain s/p mechanical fall. Per the patient's daughter, the patient slipped and fell down approximately 10 steps at her home. Daughters heard her fall but did not witness it. She denies any loss of consciousness or AMS. States the patient was tearful and complaining of left wrist and leg pain when they found her. Patient rates her wrist pain as 10/10 and her leg pain as 5/10. The patient does not take any blood thinners. Denies headache, neck pain, or numbness/tingling/weakness. Patient does not speak [place] and history obtained from her daughter who is in the room. Review of Systems: Review of Systems: Constitutional: Denies fever or chills Eyes: Denies redness or eye pain HENT: Denies nasal congestion or sore throat Respiratory: Denies cough or shortness of breath Cardiovascular: Denies chest pain or palpitations GI: Denies abdominal pain, nausea, or vomiting : Denies dysuria or hematuria Musculoskeletal: Reports left wrist pain and leg pain. Denies back pain, neck pain, or joint pain Integument: Denies rash or skin lesions Neurologic: Denies headache, focal weakness or sensory changes Complete systems were reviewed and found to be within normal limits, except as documented in this note. Heart Score: C/O Chest Pain: N/A Current Medications: Current Medications Medications (Trade) Dose Ordered Sig/[facility] Start Time Stop Time Status Last Admin Dose Admin Fentanyl Citrate (Fentanyl 2ml Vial) 50 mcg 1X ONCE 05/02/21 20:00 05/02/21 20:01 Sodium Chloride 1,000 ml @ 1,000 mls/hr 1X ONCE 05/02/21 20:00 05/02/21 20:59 Allergies: Allergies: Allergies Coded Allergies Type Severity Reaction Last Updated Verified No Known Drug Allergies 06/10/16 No Physical Exam: PE: Constitutional: Well developed, well nourished, no acute distress, non-toxic appearance HENT: Normocephalic, atraumatic Eyes: Conjunctiva normal, no discharge Neck: Normal range of motion, no tenderness, supple Lungs & Thorax: No respiratory distress, equal chest rise and fall Abdomen: Soft, no tenderness Skin: Warm, dry, no erythema, no rash Back: No tenderness, no CVA tenderness Extremities: Swelling, tenderness, and bruising noted over the left wrist. Limited wrist ROM secondary to pain. Good movement of all digits. Distal pulses intact. Good lead front desk agent strength. Neurologic: Alert and oriented X 3, normal motor function, normal sensory function, no focal deficits noted Psychologic: Affect normal, judgment normal Current Patient Data: Vital Signs: Vital Signs Date Time Temp Pulse Resp B/P (MAP) Pulse Ox O2 Delivery O2 Flow Rate FiO2 05/02/21 19:18 98.5 77 16 210/110 (140) 98 Room Air 98.5 EKG: EK: 102 BPM, sinus tachycardia, no ST segment elevation, QRS 80ms, QT/QTc 324ms/426ms Radiology/Procedures: Radiology/Procedures: XR LT WRIST 3VIEWS DATE: 05/02/2021 8:10 PM INDICATION: pain s/p fall COMPARISON: None. FINDINGS: Bones: Acute comminuted distal radius fracture with intra-articular extension and dorsal angulation. Acute nondisplaced fracture at the base of the ulnar styloid. Joints: The joint spaces are normal. Miscellaneous: None. IMPRESSION: 1. Acute comminuted distal radius fracture. 2. Acute nondisplaced fracture at the base of the ulnar styloid. Electronically signed by: Darrell Recio MD (05/02/2021 8:39 PM) [facility] XR ELBOW_LEFT DATE: 05/02/2021 8:10 PM INDICATION: pain s/p fall COMPARISON: None. FINDINGS: Bones: There is no evidence of acute fracture or dislocation. Joints: The joint spaces are normal. There is no joint effusion. Miscellaneous: None. IMPRESSION: No evidence of acute fracture. Electronically signed by: Darrell Recio MD (05/02/2021 8:40 PM) [facility] XR PELVIS 1-2V, XR FEMUR_LEFT DATE: 05/02/2021 8:10 PM INDICATION: pain s/p fall / Spl. Instructions: / History: COMPARISON: None. FINDINGS: Bones: There is no evidence of acute fracture or dislocation. Joints: The joint spaces are normal. Miscellaneous: None. IMPRESSION: Acute nondisplaced left femoral neck fracture Electronically signed by: Darrell Recio MD (05/02/2021 9:09 PM) [facility] CT HEAD AND C-SPINE WO Date: 05/02/2021 8:10 PM Clinical Indication: pain s/p fall down stairs Comparison: None. Technique: 5 mm axial tomographic images were obtained of the head without contrast. These were viewed on brain and bone windows. Noncontrast CT of the cervical spine was performed. Sagittal and coronal reformats were performed and evaluated. One or more of the following dose reduction techniques were utilized: Automated exposure control (AEC), Adjustment of mA and/or kV according to patient size, Use of iterative reconstruction technique such as ASiR, CT scan done according to ALARA and image gently/image wisely HEAD FINDINGS: Mild generalized cerebral and cerebellar volume loss. Mild nonspecific periventricular hypoattenuation, most commonly seen with chronic small vessel ischemic disease. No intra- or extra-axial mass or fluid collection. No acute hemorrhage. The ventricles are normal in size, shape, and morphology. The green-white matter junction is normal. The basilar cisterns are patent. The visualized paranasal sinuses are normal. The visualized portions of the orbits and globes are normal. The mastoid air cells are clear. No aggressive osseous lesion or fracture. CERVICAL SPINE FINDINGS: The cervical spine is normally aligned. No acute fracture. No aggressive lytic or blastic osseous lesions. Mild multilevel degenerative disc space height loss. Bilateral thyroid calcified nodules. No cervical lymphadenopathy. Bilateral carotid atherosclerosis. The visualized aerodigestive tract is normal. Upper lungs demonstrate emphysematous changes. IMPRESSION: 1. No acute intracranial process. 2. No acute cervical spine fracture. Electronically signed by: Darrell Recio MD (05/02/2021 9:00 PM) [facility] XR PELVIS 1-2V, XR FEMUR_LEFT DATE: 05/02/2021 8:10 PM INDICATION: pain s/p fall / Spl. Instructions: / History: COMPARISON: None. FINDINGS: Bones: There is no evidence of acute fracture or dislocation. Joints: The joint spaces are normal. Miscellaneous: None. IMPRESSION: Acute nondisplaced left femoral neck fracture Electronically signed by: Darrell Recio MD (05/02/2021 9:09 PM) [facility]V INDICATION: Reason: pain s/p fall / Spl. Instructions: / History: . COMPARISON STUDY: 04/17/2021. FINDINGS: Lungs: Normal lung volume. No pulmonary mass or consolidation. The t racheobronchial tree and hilar structures are normal. Pleura: No pleural effusion or pneumothorax. Heart and Mediastinum: Cardiomegaly. Tortuous thoracic aorta. IMPRESSION: No consolidation. Electronically signed by: Darrell Recio MD (05/02/2021 9:07 PM) [facility] Course & Med Decision Making: Course & Med Decision Making 70 year old female presents s/p fall with left wrist and leg pain. Labs and imaging obtained and posted to chart. Administered 50mcg of fentanyl for pain control. Imaging significant for distal radius and ulnar styloid fractures as well as a femoral neck fracture. I spoke with Dr. Gee (orthopedics) who reviewed imaging and requests a lateral hip X-Ray for further evaluation. Requests admission and will consult in the morning. Left UE stabilized in a sugar tong splint. Patient requiring admission for further evaluation and treatment. Discussed with Dr. Miles (hospitalist) who is in agreement with admission. Discussed findings and plan with patient, who acknowledges understanding and agreement. Derick Disclaimer: Derick Disclaimer: This electronic medical record was generated, in whole or in part, using a voice recognition dictation system. Departure Departure Referrals: JENN STEPHEN MD (PCP) ZORAN VILLAVICENCIO DO May 02, 2021 20:05
--- NOTE | 2021-05-02 20:41 | RAD ---
XR LT WRIST 3VIEWS DATE: 05/02/2021 8:10 PM INDICATION: pain s/p fall COMPARISON: None. FINDINGS: Bones: Acute comminuted distal radius fracture with intra-articular extension and dorsal angulation. Acute nondisplaced fracture at the base of the ulnar styloid. Joints: The joint spaces are normal. Miscellaneous: None. IMPRESSION: 1. Acute comminuted distal radius fracture. 2. Acute nondisplaced fracture at the base of the ulnar styloid. Electronically signed by: Darrell Recio MD (05/02/2021 8:39 PM) [facility]
--- NOTE | 2021-05-02 20:42 | RAD ---
XR ELBOW_LEFT DATE: 05/02/2021 8:10 PM INDICATION: pain s/p fall COMPARISON: None. FINDINGS: Bones: There is no evidence of acute fracture or dislocation. Joints: The joint spaces are normal. There is no joint effusion. Miscellaneous: None. IMPRESSION: No evidence of acute fracture. Electronically signed by: Darrell Recio MD (05/02/2021 8:40 PM) [facility]
--- NOTE | 2021-05-02 21:03 | RAD ---
CT HEAD AND C-SPINE WO Date: 05/02/2021 8:10 PM Clinical Indication: pain s/p fall down stairs Comparison: None. Technique: 5 mm axial tomographic images were obtained of the head without contrast. These were view ed on brain and bone windows. Noncontrast CT of the cervical spine was performed. Sagittal and belle l reformats were performed and evaluated. One or more of the following dose reduction techniques were utilized: Automated exposure control (AEC), Adjustment of mA and/or kV according to patient size, Us e of iterative reconstruction technique such as ASiR, CT scan done according to ALARA and image gentl y/image wisely HEAD FINDINGS: Mild generalized cerebral and cerebellar volume loss. Mild nonspecific periventricular hypoattenuatio n, most commonly seen with chronic small vessel ischemic disease. No intra- or extra-axial mass or fluid collection. No acute hemorrhage. The ventricles are normal in size, shape, and morphology. The green-white matter junction is normal. The basilar cisterns are paten t. The visualized paranasal sinuses are normal. The visualized portions of the orbits and globes are no rmal. The mastoid air cells are clear. No aggressive osseous lesion or fracture. CERVICAL SPINE FINDINGS: The cervical spine is normally aligned. No acute fracture. No aggressive lytic or blastic osseous les ions. Mild multilevel degenerative disc space height loss. Bilateral thyroid calcified nodules. No cervical lymphadenopathy. Bilateral carotid atherosclerosis. The visualized aerodigestive tract is normal. Upper lungs demonstrate emphysematous changes. IMPRESSION: 1. No acute intracranial process. 2. No acute cervical spine fracture. Electronically signed by: Darrell Recio MD (05/02/2021 9:00 PM) [facility]
--- NOTE | 2021-05-02 21:10 | RAD ---
XR CHEST 1V INDICATION: Reason: pain s/p fall / Spl. Instructions: / History: . COMPARISON STUDY: 04/17/2021. FINDINGS: Lungs: Normal lung volume. No pulmonary mass or consolidation. The tracheobronchial tree and hilar st ructures are normal. Pleura: No pleural effusion or pneumothorax. Heart and Mediastinum: Cardiomegaly. Tortuous thoracic aorta. IMPRESSION: No consolidation. Electronically signed by: Darrell Recio MD (05/02/2021 9:07 PM) [facility]
--- NOTE | 2021-05-02 21:12 | RAD ---
XR PELVIS 1-2V, XR FEMUR_LEFT DATE: 05/02/2021 8:10 PM INDICATION: pain s/p fall / Spl. Instructions: / History: COMPARISON: None. FINDINGS: Bones: There is no evidence of acute fracture or dislocation. Joints: The joint spaces are normal. Miscellaneous: None. IMPRESSION: Acute nondisplaced left femoral neck fracture Electronically signed by: Darrell Recio MD (05/02/2021 9:09 PM) [facility]
[2021-05-02] MEDS ORDERED: MORPHINE SULFATE 4 MG/ML INJ. IVP ONE ×2 (21:15→22:30)
[2021-05-02] MEDS ORDERED: ONDANSETRON PF 4 MG/2 ML VIAL. IVP PRN ×2 (22:00→23:15)
[2021-05-02 22:07] LABS: BASO # 0.1 x10^3/uL (0.0-0.2); BASO % 1 % (0-3); EOS # 0.2 x10^3/uL (0.0-0.7); EOS % 1 % (0-3); HEMATOCRIT 33.9 % (36.0-47.0); HEMOGLOBIN 11.1 g/dL (12.0-15.5); LYMPH # 1.4 x10^3/uL (1.0-4.8); LYMPH % 12 % (24-48); MEAN CORPUSCULAR HEMOGLOBIN 27 pg (25-35); MEAN CORPUSCULAR HGB CONC 33 g/dL (31-37); MEAN CORPUSCULAR VOLUME 82 fL (79-100); MONO # 0.5 x10^3/uL (0.0-1.1); MONO % 4 % (0-9); NEUT % 83 % (31-73); PLATELET COUNT 191 x10^3/uL (140-400); RED BLOOD COUNT 4.14 x10^6/uL (3.50-5.40); RED CELL DISTRIBUTION WIDTH 14.8 % (11.5-14.5); WHITE BLOOD COUNT 12.1 x10^3/uL (4.0-11.0)
[2021-05-02 22:24] LABS: PROTHROMBIN TIME PATIENT 12.5 SEC (11.7-14.0)
[2021-05-02 22:24] LABS: CALCIUM 9.5 mg/dL (8.5-10.1); CREATININE 1.1 mg/dL (0.6-1.0); GFR 49.1; POTASSIUM 4.4 mmol/L (3.5-5.1)
--- NOTE | 2021-05-02 22:29 | RAD ---
Exam: Left hip 2 views INDICATION: Femoral neck, pain TECHNIQUE: Lateral view of the left femur Comparisons: None FINDINGS: Mild cortical step-off noted at the left femoral neck. Soft tissues are unremarkable. Joint spaces ar e well-maintained. IMPRESSION: Redemonstration of nondisplaced fracture of the left femoral neck. Electronically signed by: Ang Batista MD (05/02/2021 10:26 PM) [facility]
[2021-05-02 22:30] LABS: ALBUMIN 3.6 g/dL (3.4-5.0); ALBUMIN/GLOBULIN RATIO 0.9 (1.0-1.7); MAGNESIUM 1.5 mg/dL (1.8-2.4); TOTAL BILIRUBIN 0.2 mg/dL (0.2-1.0); TOTAL PROTEIN 7.5 g/dL (6.4-8.2)
[2021-05-02] MEDS ORDERED: LABETALOL 20 MG/4 ML DISP.SYRIN. IVP ONE (22:30)
[2021-05-02 22:36] LABS: CREATINE KINASE 69 U/L (26-192)
[2021-05-02] MEDS ORDERED: ACETAMINOPHEN 325 MG TABLET. PO PRN (23:15)
[2021-05-02] MEDS ORDERED: ZOLPIDEM 5 MG TABLET. PO PRN (23:15)
[2021-05-02] MEDS ORDERED: MAG HYDROX/ALUMINUM HYD/SIMETH 30 ML ORAL.SUSP PO PRN (23:15)
[2021-05-02] MEDS ORDERED: CALCIUM CARBONATE 500 MG TAB.CHEW PO PRN (23:15)
[2021-05-02] MEDS: hydrALAZINE 20 MG/ML VIAL. IVP PRN (23:23)
[2021-05-02] MEDS: LABETALOL 20 MG/4 ML DISP.SYRIN. IVP PRN (23:47)
[2021-05-02] MEDS: MORPHINE SULFATE 4 MG/ML INJ. IVP PRN (23:48)
[2021-05-03] VITALS (14 sets, daily range): BP systolic 140–208; BP diastolic 71–109
[2021-05-03] MEDS: MORPHINE SULFATE 4 MG/ML INJ. IVP PRN ×3 (01:55→18:22)
[2021-05-03] MEDS ORDERED: SIMV10TA15 PO (05:34)
[2021-05-03] MEDS ORDERED: METO25TA4 PO (05:34)
[2021-05-03] MEDS: HEPARIN for SUB-Q USE 5,000 UNIT/ML VIAL. SQ SCH ×3 (06:00→22:00)
[2021-05-03] MEDS ORDERED: DEXTROSE 50% 25 GM / 50ML DISP.SYRIN. IV PRN (06:45)
--- NOTE | 2021-05-03 07:25 | PDOC1 ---
History and Physical Date of Admission Date of Admission DATE: 05/03/21 TIME: 06:41 Identification/Chief Complaint Chief Complaint Left arm pain, left hip pain Source Source: Chart review, Patient History of Present Illness History of Present Illness Patient 70-year-old female with past medical history DM2, HTN, HLD, who presents to the ED for evaluation of left hip and left arm pain after a mechanical fall down approximately 10 flights of stairs yesterday. Her family heard the fall but apparently did not witness. She began complaining of left wrist and left hip pain, 10/10, immediately following her fall. She denies any loss of consciousness, headache, or neck pain. Labs admission showed WBC 12.1, creatinine 1.1, hemoglobin 11.1, hematocrit 33.9, CBG 124. Past Medical History Cardiovascular: HTN, Hyperlipidemia Endocrine: Diabetes Past Surgical History Past Surgical History: No pertinent history Family History Family History: Hypertension Social History Smoke: No ALCOHOL: none Drugs: None Current Problem List Problem List Problems Medical Problems: (1) Hypertension Status: Acute Current Medications Current Medications Current Medications Sodium Chloride 1,000 ml @ 1,000 mls/hr 1X ONCE IV Last administered on 05/02/21at 20:07; Start 05/02/21 at 20:00; Stop 05/02/21 at 20:59; Status DC Fentanyl Citrate (Fentanyl 2ml Vial) 50 mcg 1X ONCE IV Last administered on 05/02/21at 20:07; Start 05/02/21 at 20:00; Stop 05/02/21 at 20:01; Status DC Morphine Sulfate (Morphine Sulfate) 4 mg 1X ONCE IVP Last administered on 05/02/21at 21:09; Start 05/02/21 at 21:15; Stop 05/02/21 at 21:16; Status DC Ondansetron HCl (Zofran) 4 mg PRN Q8HRS PRN IVP NAUSEA/VOMITING; Start 05/02/21 at 22:00; Stop 05/03/21 at 21:59 Morphine Sulfate (Morphine Sulfate) 4 mg PRN Q2HR PRN IVP PAIN Last administered on 05/03/21at 01:55; Start 05/02/21 at 22:00; Stop 05/03/21 at 21:59 Morphine Sulfate (Morphine Sulfate) 4 mg 1X ONCE IVP Last administered on 05/02/21at 22:38; Start 05/02/21 at 22:30; Stop 05/02/21 at 22:31; Status DC Labetalol HCl (Normodyne Iv Push) 10 mg 1X ONCE IVP Last administered on 05/02/21at 22:31; Start 05/02/21 at 22:30; Stop 05/02/21 at 22:31; Status DC Hydralazine HCl (Apresoline Inj) 10 mg PRN Q4HRS PRN IVP HYPERTENSION Last administered on 05/02/21at 23:23; Start 05/02/21 at 23:00 Labetalol HCl (Normodyne Iv Push) 10 mg PRN Q4HRS PRN IVP HYPERTENSION Last administered on 05/02/21at 23:47; Start 05/02/21 at 23:00 Ondansetron HCl (Zofran) 4 mg PRN Q6HRS PRN IVP NAUSEA/VOMITING; Start 05/02/21 at 23:15 Al Hydroxide/Mg Hydroxide (Mylanta Plus Xs) 30 ml PRN Q3HRS PRN PO HEARTBURN / GAS; Start 05/02/21 at 23:15 Calcium Carbonate/ Glycine (Tums) 500 mg PRN Q3HRS PRN PO UPSET STOMACH; Start 05/02/21 at 23:15 Zolpidem Tartrate (Ambien) 5 mg PRN QHS PRN PO INSOMNIA, MAY REPEAT IN 1HR; Start 05/02/21 at 23:15 Acetaminophen/ Hydrocodone Bitart (Lortab 5/325) 1 tab PRN Q4HRS PRN PO MILD PAIN 1-3; Start 05/02/21 at 23:15 Acetaminophen/ Hydrocodone Bitart (Lortab 5/325) 2 tab PRN Q4HRS PRN PO MODERATE PAIN, SEVERE PAIN; Start 05/02/21 at 23:15 Acetaminophen (Tylenol) 650 mg PRN Q6HRS PRN PO Headaches, Temp > 101.5F; Start 05/02/21 at 23:15 Magnesium Hydroxide (Milk Of Magnesia) 2,400 mg PRN Q12HR PRN PO CONSTIPATION; Start 05/02/21 at 23:15 Heparin Sodium (Porcine) (Heparin Sodium) 5,000 unit Q8HRS SQ ; Start 05/03/21 at 06:00 Metoprolol Tartrate (Lopressor) 25 mg BID PO ; Start 05/03/21 at 09:00; Status UNV Simvastatin (Zocor) 10 mg HS PO ; Start 05/03/21 at 21:00; Status UNV Active Scripts Active Reported Simvastatin 10 Mg Tablet 10 Mg PO HS Metoprolol Tartrate 25 Mg Tablet 25 Mg PO BID Metformin Hcl 500 Mg Tablet 500 Mg PO BIDWMEALS Allergies Allergies: Coded Allergies: No Known Drug Allergies (Unverified , 06/10/16) ROS Review of System GENERAL: No history of weight change, weakness or fevers. SKIN: No bruising, hair changes or rashes. EYES: No blurred, double or loss of vision. NOSE AND THROAT: No history of nosebleeds, hoarseness or sore throat. HEART: Denies chest pain, denies palpitations. LUNGS: Denies cough, hemoptysis, wheezing or shortness of breath. GASTROINTESTINAL: Denies nausea, vomiting, abdominal pain. GENITOURINARY: Denies dysuria, frequency, urgency, hematuria. NEUROLOGIC: Denies history of numbness, tingling, tremor or weakness. PSYCHIATRIC: Denies anxiety, denies depression. ENDOCRINE: No history of heat or cold intolerance, polyuria or polydipsia. EXTREMITIES: Left wrist pain, left hip pain. Physical Exam Physical Exam General: Alert, Oriented X3, Cooperative, moderate distress. HEENT: PERRLA, EOMI Lungs: Clear to auscultation, Normal air movement Heart: RRR, no murmurs Cardiovascular: S1, S2 Abdomen: Normal bowel sounds, Soft, No tenderness Extremities: Left wrist tenderness with swelling and bruising. Limited wrist ROM secondary to pain. No clubbing, No cyanosis. Skin: No rashes, No significant lesion Neuro: Normal speech, Normal tone, Sensation intact Psych/Mental Status: Mental status NL, Mood NL Vitals Vitals Vital Signs Date Time Temp Pulse Resp B/P (MAP) Pulse Ox O2 Delivery O2 Flow Rate FiO2 05/03/21 03:12 98.5 100 18 140/76 (97) 93 Room Air 98.5 Labs Labs Laboratory Tests Test 05/02/21 19:50 05/02/21 21:25 05/02/21 21:53 White Blood Count 12.1 x10^3/uL (4.0-11.0) Red Blood Count 4.14 x10^6/uL (3.50-5.40) Hemoglobin 11.1 g/dL (12.0-15.5) Hematocrit 33.9 % (36.0-47.0) Mean Corpuscular Volume 82 fL (79-100) Mean Corpuscular Hemoglobin 27 pg (25-35) Mean Corpuscular Hemoglobin Concent 33 g/dL (31-37) Red Cell Distribution Width 14.8 % (11.5-14.5) Platelet Count 191 x10^3/uL (140-400) Neutrophils (%) (Auto) 83 % (31-73) Lymphocytes (%) (Auto) 12 % (24-48) Monocytes (%) (Auto) 4 % (0-9) Eosinophils (%) (Auto) 1 % (0-3) Basophils (%) (Auto) 1 % (0-3) Neutrophils # (Auto) 10.0 x10^3/uL (1.8-7.7) Lymphocytes # (Auto) 1.4 x10^3/uL (1.0-4.8) Monocytes # (Auto) 0.5 x10^3/uL (0.0-1.1) Eosinophils # (Auto) 0.2 x10^3/uL (0.0-0.7) Basophils # (Auto) 0.1 x10^3/uL (0.0-0.2) Sodium Level 139 mmol/L (136-145) Potassium Level 4.4 mmol/L (3.5-5.1) Chloride Level 105 mmol/L (98-107) Carbon Dioxide Level 26 mmol/L (21-32) Anion Gap 8 (6-14) Blood Urea Nitrogen 18 mg/dL (7-20) Creatinine 1.1 mg/dL (0.6-1.0) Estimated GFR (Cockcroft-Gault) 49.1 BUN/Creatinine Ratio 16 (6-20) Glucose Level 124 mg/dL (70-99) Calcium Level 9.5 mg/dL (8.5-10.1) Magnesium Level 1.5 mg/dL (1.8-2.4) Total Bilirubin 0.2 mg/dL (0.2-1.0) Aspartate Amino Transf (AST/SGOT) 21 U/L (15-37) Alanine Aminotransferase (ALT/SGPT) 18 U/L (14-59) Alkaline Phosphatase 60 U/L (46-116) Creatine Kinase 69 U/L (26-192) Creatine Kinase MB (Mass) 1.4 ng/mL (0.0-3.6) Creatine Kinase MB Relative Index % (0-4) Troponin I Quantitative < 0.017 ng/mL (0.000-0.055) Total Protein 7.5 g/dL (6.4-8.2) Albumin 3.6 g/dL (3.4-5.0) Albumin/Globulin Ratio 0.9 (1.0-1.7) SARS-CoV-2 Antigen (Rapid) Negative (NEGATIVE) Prothrombin Time 12.5 SEC (11.7-14.0) Prothromb Time International Ratio 0.9 (0.8-1.1) Activated Partial Thromboplast Time 28 SEC (24-38) Laboratory Tests Test 05/02/21 19:50 05/02/21 21:25 05/02/21 21:53 White Blood Count 12.1 x10^3/uL (4.0-11.0) Red Blood Count 4.14 x10^6/uL (3.50-5.40) Hemoglobin 11.1 g/dL (12.0-15.5) Hematocrit 33.9 % (36.0-47.0) Mean Corpuscular Volume 82 fL (79-100) Mean Corpuscular Hemoglobin 27 pg (25-35) Mean Corpuscular Hemoglobin Concent 33 g/dL (31-37) Red Cell Distribution Width 14.8 % (11.5-14.5) Platelet Count 191 x10^3/uL (140-400) Neutrophils (%) (Auto) 83 % (31-73) Lymphocytes (%) (Auto) 12 % (24-48) Monocytes (%) (Auto) 4 % (0-9) Eosinophils (%) (Auto) 1 % (0-3) Basophils (%) (Auto) 1 % (0-3) Neutrophils # (Auto) 10.0 x10^3/uL (1.8-7.7) Lymphocytes # (Auto) 1.4 x10^3/uL (1.0-4.8) Monocytes # (Auto) 0.5 x10^3/uL (0.0-1.1) Eosinophils # (Auto) 0.2 x10^3/uL (0.0-0.7) Basophils # (Auto) 0.1 x10^3/uL (0.0-0.2) Sodium Level 139 mmol/L (136-145) Potassium Level 4.4 mmol/L (3.5-5.1) Chloride Level 105 mmol/L (98-107) Carbon Dioxide Level 26 mmol/L (21-32) Anion Gap 8 (6-14) Blood Urea Nitrogen 18 mg/dL (7-20) Creatinine 1.1 mg/dL (0.6-1.0) Estimated GFR (Cockcroft-Gault) 49.1 BUN/Creatinine Ratio 16 (6-20) Glucose Level 124 mg/dL (70-99) Calcium Level 9.5 mg/dL (8.5-10.1) Magnesium Level 1.5 mg/dL (1.8-2.4) Total Bilirubin 0.2 mg/dL (0.2-1.0) Aspartate Amino Transf (AST/SGOT) 21 U/L (15-37) Alanine Aminotransferase (ALT/SGPT) 18 U/L (14-59) Alkaline Phosphatase 60 U/L (46-116) Creatine Kinase 69 U/L (26-192) Creatine Kinase MB (Mass) 1.4 ng/mL (0.0-3.6) Creatine Kinase MB Relative Index % (0-4) Troponin I Quantitative < 0.017 ng/mL (0.000-0.055) Total Protein 7.5 g/dL (6.4-8.2) Albumin 3.6 g/dL (3.4-5.0) Albumin/Globulin Ratio 0.9 (1.0-1.7) SARS-CoV-2 Antigen (Rapid) Negative (NEGATIVE) Prothrombin Time 12.5 SEC (11.7-14.0) Prothromb Time International Ratio 0.9 (0.8-1.1) Activated Partial Thromboplast Time 28 SEC (24-38) Images Images Radiology/Procedures: XR LT WRIST 3VIEWS DATE: 05/02/2021 8:10 PM INDICATION: pain s/p fall COMPARISON: None. FINDINGS: Bones: Acute comminuted distal radius fracture with intra-articular extension and dorsal angulation. Acute nondisplaced fracture at the base of the ulnar styloid. Joints: The joint spaces are normal. Miscellaneous: None. IMPRESSION: 1. Acute comminuted distal radius fracture. 2. Acute nondisplaced fracture at the base of the ulnar styloid. Electronically signed by: Darrell Recio MD (05/02/2021 8:39 PM) [facility] XR ELBOW_LEFT DATE: 05/02/2021 8:10 PM INDICATION: pain s/p fall COMPARISON: None. FINDINGS: Bones: There is no evidence of acute fracture or dislocation. Joints: The joint spaces are normal. There is no joint effusion. Miscellaneous: None. IMPRESSION: No evidence of acute fracture. Electronically signed by: Darrell Recio MD (05/02/2021 8:40 PM) [facility] XR PELVIS 1-2V, XR FEMUR_LEFT DATE: 05/02/2021 8:10 PM INDICATION: pain s/p fall / Spl. Instructions: / History: COMPARISON: None. FINDINGS: Bones: There is no evidence of acute fracture or dislocation. Joints: The joint spaces are normal. Miscellaneous: None. IMPRESSION: Acute nondisplaced left femoral neck fracture Electronically signed by: Darrell Recio MD (05/02/2021 9:09 PM) [facility] CT HEAD AND C-SPINE WO Date: 05/02/2021 8:10 PM Clinical Indication: pain s/p fall down stairs Comparison: None. Technique: 5 mm axial tomographic images were obtained of the head without contrast. These were viewed on brain and bone windows. Noncontrast CT of the cervical spine was performed. Sagittal and coronal reformats were performed and evaluated. One or more of the following dose reduction techniques were utilized: Automated exposure control (AEC), Adjustment of mA and/or kV according to patient size, Use of iterative reconstruction technique such as ASiR, CT scan done according to ALARA and image gently/image wisely HEAD FINDINGS: Mild generalized cerebral and cerebellar volume loss. Mild nonspecific periventricular hypoattenuation, most commonly seen with chronic small vessel ischemic disease. No intra- or extra-axial mass or fluid collection. No acute hemorrhage. The ventricles are normal in size, shape, and morphology. The green-white matter junction is normal. The basilar cisterns are patent. The visualized paranasal sinuses are normal. The visualized portions of the orbits and globes are normal. The mastoid air cells are clear. No aggressive osseous lesion or fracture. CERVICAL SPINE FINDINGS: The cervical spine is normally aligned. No acute fracture. No aggressive lytic or blastic osseous lesions. Mild multilevel degenerative disc space height loss. Bilateral thyroid calcified nodules. No cervical lymphadenopathy. Bilateral carotid atherosclerosis. The visualized aerodigestive tract is normal. Upper lungs demonstrate emphysematous changes. IMPRESSION: 1. No acute intracranial process. 2. No acute cervical spine fracture. Electronically signed by: Darrell Recio MD (05/02/2021 9:00 PM) [facility] XR PELVIS 1-2V, XR FEMUR_LEFT DATE: 05/02/2021 8:10 PM INDICATION: pain s/p fall / Spl. Instructions: / History: COMPARISON: None. FINDINGS: Bones: There is no evidence of acute fracture or dislocation. Joints: The joint spaces are normal. Miscellaneous: None. IMPRESSION: Acute nondisplaced left femoral neck fracture Electronically signed by: Darrell Recio MD (05/02/2021 9:09 PM) [facility] XR CHEST 1V INDICATION: Reason: pain s/p fall / Spl. Instructions: / History: . COMPARISON STUDY: 04/17/2021. FINDINGS: Lungs: Normal lung volume. No pulmonary mass or consolidation. The tracheobronchial tree and hilar structures are normal. Pleura: No pleural effusion or pneumothorax. Heart and Mediastinum: Cardiomegaly. Tortuous thoracic aorta. IMPRESSION: No consolidation. Electronically signed by: Darrell Recio MD (05/02/2021 9:07 PM) [facility]ITAL[facility]er[facility] VTE Prophylaxis Ordered VTE Prophylaxis Devices: No VTE Pharmacological Prophylaxi: Yes Assessment/Plan Assessment/Plan Acute comminuted distal radius fracture. Acute nondisplaced fracture at the base of the ulnar styloid Acute nondisplaced left femoral neck fracture DREW due to vasomotor nephropathy HTN DM2 HLD Normocytic anemia Plan: Consultation placed to orthopedic surgery Provide IV pain management and keep patient n.p.o. for possible surgical intervention IV fluids Basal/prandial insulin Resume home medications PT/OT FEN - Cardiac diet PPX - Heparin FULL CODE Dispo - inpatient for above Justifications for Admission Other Justification ANDER JOSEPH MD May 03, 2021 07:25
[2021-05-03] MEDS: INSULIN LISPRO 300 UNITS/3 ML VIAL. SQ SCH ×3 (08:00→17:00)
[2021-05-03] MEDS: hydrALAZINE 20 MG/ML VIAL. IVP PRN ×3 (08:29→23:55)
[2021-05-03] MEDS ORDERED: LIDOCAINE 2% PF 5 ML VIAL. ONE (08:49)
[2021-05-03] MEDS ORDERED: ROCURONIUM 50 MG/5 ML VIAL. ONE (08:49)
[2021-05-03] MEDS ORDERED: fentaNYL PF VIAL 100 MCG/2 ML VIAL ONE (08:49)
[2021-05-03] MEDS ORDERED: PROPOFOL 10 MG/ML (20ML) VIAL. IV ONE (08:49)
[2021-05-03] MEDS: METOPROLOL TART IMMED RELEASE 25 MG TABLET. PO SCH ×2 (09:00→21:22)
[2021-05-03 09:13] LABS: BASO # 0.1 x10^3/uL (0.0-0.2); BASO % 1 % (0-3); EOS # 0.1 x10^3/uL (0.0-0.7); EOS % 1 % (0-3); HEMATOCRIT 31.7 % (36.0-47.0); HEMOGLOBIN 10.4 g/dL (12.0-15.5); LYMPH # 1.4 x10^3/uL (1.0-4.8); LYMPH % 16 % (24-48); MEAN CORPUSCULAR HEMOGLOBIN 27 pg (25-35); MEAN CORPUSCULAR HGB CONC 33 g/dL (31-37); MEAN CORPUSCULAR VOLUME 81 fL (79-100); MONO # 0.5 x10^3/uL (0.0-1.1); MONO % 6 % (0-9); NEUT % 77 % (31-73); PLATELET COUNT 183 x10^3/uL (140-400); RED BLOOD COUNT 3.92 x10^6/uL (3.50-5.40); WHITE BLOOD COUNT 9.1 x10^3/uL (4.0-11.0)
[2021-05-03 09:29] LABS: CALCIUM 8.9 mg/dL (8.5-10.1); CREATININE 0.8 mg/dL (0.6-1.0); GFR 70.9
[2021-05-03] MEDS ORDERED: ENALAPRILAT 1.25 MG/ML VIAL. IVP PRN (09:30)
[2021-05-03] MEDS ORDERED: PROCHLORPERAZINE 10 MG/2 ML VIAL. IVP PRN (09:45)
[2021-05-03] MEDS ORDERED: IV RINGERS,LACTATED 1000ML 1,000 ML IV SCH (09:45)
[2021-05-03] MEDS ORDERED: fentaNYL PF VIAL 100 MCG/2 ML VIAL IVP PRN ×2 (09:45)
[2021-05-03] MEDS ORDERED: HYDROmorphone 2 MG/ML VIAL IVP PRN (09:45)
[2021-05-03] MEDS ORDERED: LABETALOL 20 MG/4 ML DISP.SYRIN. IVP ONE (09:47)
[2021-05-03] MEDS ORDERED: ONDANSETRON PF 4 MG/2 ML VIAL. ONE (10:36)
[2021-05-03] MEDS ORDERED: DEXAMETHASONE SOD PHOS 4 MG/ML VIAL ONE (10:36)
[2021-05-03] MEDS ORDERED: PHENYLEPHRINE in 0.9% NACL PF 1 MG/10 ML SYRINGE. IV ONE (10:53)
[2021-05-03] MEDS ORDERED: SEVOFLURANE 61 TO 120 MINUTES. IH ONE (11:37)
[2021-05-03] MEDS ORDERED: MORPHINE SULFATE 2 MG/ML INJ. ONE (12:28)
[2021-05-03] MEDS: MORPHINE SULFATE 2 MG/ML INJ. IVP PRN ×2 (12:29→12:41)
[2021-05-03] MEDS ORDERED: HYDROmorphone 2 MG/ML VIAL ONE (12:48)
[2021-05-03] MEDS: HYDROmorphone 2 MG/ML VIAL IVP PRN ×3 (13:05→13:55)
[2021-05-03] MEDS ORDERED: LABETALOL 20 MG/4 ML DISP.SYRIN. IVP PRN (13:07)
[2021-05-03] MEDS ORDERED: INSULIN LISPRO 100 UNIT/ML 3ML VIAL for OP,RR ONLY. SQ PRN (13:15)
--- NOTE | 2021-05-03 15:18 | NUR ---
Pt went to surgery this AM, received report from PACU at 1355 from Afia JIMENEZ. Pt did well, pinning to left hip with Xeroform, 4X4, ABD, and Mediform tape. ORIF to left wrist with Xeroform, 4X4, ABD, soft roll, splint and Jarad wrap. Total blood loss was 50cc during surgery, 700cc of fluids given all together. Pt can resume diet and medications, Dr. Gee wants a platform walker and my be WBAT to [place]. She is toe touch WB to LLE. BP remained high during surgery and PACU, she was given Labetolol 10mg IV at 1303. BS at 1303 was 181. Pt returned to floor at 1403, frequency was started, pt resting comfortably and dressings are intact. Daughter at side
--- NOTE | 2021-05-03 17:28 | NUR ---
Insulin held d\t pt not eating at this time, sleeping from surgery
[2021-05-03] MEDS: HYDROcodone/APAP 5/325MG 1 TAB TABLET PO PRN ×2 (18:21→23:56)
--- NOTE | 2021-05-03 18:31 | NUR ---
Approval from production assembly supervisor for 1 family member to stay the night for translation d/t language barrier
[2021-05-03] MEDS: SIMVASTATIN 10 MG TABLET PO SCH (21:22)
[2021-05-03] MEDS: INSULIN GLARGINE SYRINGE. SQ SCH (21:27)
[2021-05-04 03:00] VITALS: BP 156/69
--- NOTE | 2021-05-04 03:42 | EKG ---
[facility] [address] [place] [address] Test Date: 2021-05-02 Test Time: 21:26:13 Pat Name: MIKE ALEJANDRO Department: Room: Gender: F [employer] Mechanic: : 1950 Requested By: ZORAN VILLAVICENCIO Order Number: [id number] Reading MD: Measurements Intervals [place] Rate: 102 P: 52 ME: 136 QRS: 36 QRSD: 80 T: 30 QT: 324 QTc: 426 Interpretive Statements SINUS TACHYCARDIA LEFT ATRIAL ABNORMALITY NON SPECIFIC ST DEPRESSION NON SPECIFIC T ABNORMALITY ABNORMAL ECG RI6.02 No previous ECG available for comparison
[2021-05-04] MEDS: HEPARIN for SUB-Q USE 5,000 UNIT/ML VIAL. SQ SCH ×3 (06:35→22:17)
[2021-05-04] MEDS: HYDROcodone/APAP 5/325MG 1 TAB TABLET PO PRN ×3 (06:36→20:57)
[2021-05-04 07:00] VITALS: BP 218/83
--- NOTE | 2021-05-04 07:09 | OP ---
DATE OF SURGERY: 05/03/2021 PREOPERATIVE DIAGNOSES: Displaced comminuted intra-articular fracture, left distal radius, as well as an impacted subcapital fracture, left hip. POSTOPERATIVE DIAGNOSES: Displaced comminuted intra-articular fracture, left distal radius, as well as an impacted subcapital fracture, left hip. PROCEDURE: Closed reduction with percutaneous pin fixation, left hip and ORIF, left wrist. Hardware is a volar plate flexor side and then 3 cannulated screws, 6.5 mm. DESCRIPTION OF PROCEDURE: The patient was taken to the operative suite, given a general anesthetic. The left lower extremity was then prepped and draped in a sterile fashion. After placement of the patient was on the fracture table, the reduction was noted to be satisfactory in both AP and lateral projections. Therefore, after this was prepped and draped, incision was made through skin and subcutaneous tissues through the iliotibial band along the lateral aspect of the femur. Three guide pins were placed in appropriate position under direct visualization with x-ray into good position past the fracture into the head and neck region appropriately. These were then subsequently measured. The tree topper was a 75 mm screw, the middle screw was a 75 mm screw and the bottom screw was an 80 mm length of screw. This was 6.5 mm for all diameters of the screw diameter of all screws. This had excellent compression of the fracture fragments. This was noted to be satisfactory alignment in both AP and lateral projections. Therefore, the wound was thoroughly irrigated. Deep and superficial tissues were reapproximated using 2-0 Vicryl, kae were reapproximating the skin. Sterile dressing was applied. Following this, this was all reprepped and redraped for the left upper extremity and after the left upper extremity was prepped and draped in a sterile fashion, exsanguination was done. Incision was made along the volar aspect of the wrist, along the area of the flexor carpi radialis, heading more radial at the distal end of the incision. This was a lazy L-type of incision. This was carefully taken down to identify the flexor carpi radialis, which was mobilized. After appropriate retraction both medially and laterally, the pronator quadratus was noted to be torn and minimally intact. Therefore, a periosteal elevator was used to remove a portion of this for the placement of the plate. After this was held in a reduced position overall under , the volar plate was then affixed to the volar aspect of the wrist using standard AO technique. The proximal screws were nonlocking screws, all of the distal screws were noted to be locking screws at this point. There was satisfactory reduction of the intra-articular portion of the radius as well as the overall fragmentation of the wrist. This was noted to be very stable and again good placement in both AP and lateral projections. Therefore, this wound was thoroughly irrigated. Superficial tissue and skin was reapproximated in an interrupted fashion using 3-0 nylon on the skin. The patient was then taken from the operative bed to the postoperative bed, taken to the PACU in stable condition. RAQUEL DR: Scar TID: [id number]
--- NOTE | 2021-05-04 07:13 | CONS ---
DATE OF CONSULTATION: 05/03/2021 REASON FOR CONSULTATION: Left hip fracture, left wrist fracture. HISTORY OF PRESENT ILLNESS: The patient is a 70-year-old female who fell down a flight of stairs last evening. She did not have a syncopal episode, but actually just tripped and fell, was injured significantly obviously and was brought to the Emergency Department. No other injuries occurred thankfully, at this point. Past medical and surgical history, medications, allergies and review of systems are all reviewed and are available on the chart. Nothing significant other than hypertension as well as the acute injuries noted above. PHYSICAL EXAMINATION: Today was pain with any type of range of motion of the left lower extremity at this point. The pain was all located to the hip region at this point. Pain with palpation of the greater trochanteric region. Limited exam due to the known fracture. The wrist has been splinted at this point, but neurovascularly is intact at this point. Skin was noted to be intact by the Emergency Department record. DIAGNOSTIC STUDIES: X-rays were reviewed. 1. It appears to be an impacted subcapital fracture of the left hip. 2. Comminuted intraarticular fracture of the left distal radius. PLAN: At this time, I have talked with her daughter through her, she is interpreting for the patient, who does not speak Vietnamese at this point. We have gone over the risks and complications as well as benefits and expectations of surgery. Postoperative protocol and followup and all questions were answered to her satisfaction. We will get her medically stabilized and then proceed with hopefully percutaneous pinning of the left hip with bipolar hemiarthroplasty should the lateral be displaced and then, ORIF of the left distal radius with a plate. RENE/CLAIRE JETER: Scar TID: [id number]
[2021-05-04] MEDS: MORPHINE SULFATE 2 MG/ML INJ. IVP PRN (07:34)
[2021-05-04] MEDS: INSULIN LISPRO 300 UNITS/3 ML VIAL. SQ SCH ×3 (08:00→17:00)
[2021-05-04] MEDS: METOPROLOL TART IMMED RELEASE 25 MG TABLET. PO SCH ×2 (09:25→20:57)
[2021-05-04] MEDS: hydrALAZINE 20 MG/ML VIAL. IVP PRN (09:28)
[2021-05-04] MEDS ORDERED: MORPHINE SULFATE 2 MG/ML INJ. IVP PRN (09:30)
--- NOTE | 2021-05-04 10:13 | NUR ---
SW following. Discussed with RN, pt from home with family, 2L (RN titrating), NPO, COVID-19 negative. PT/OT needs to be reordered today. RN notified. SW will continue to follow.
[2021-05-04 10:45] VITALS: BP 165/73
--- NOTE | 2021-05-04 14:03 | PDOC ---
[facility] PROGRESS NOTE Date of Service DOS: DATE: 05/04/21 TIME: 14:01 Chief Complaint Chief Complaint Acute comminuted distal radius fracture. Status post closed reduction with percutaneous pin fixation Acute nondisplaced fracture at the base of the ulnar styloid and ORIF of the left wrist Acute nondisplaced left femoral neck fracture DREW due to vasomotor nephropathy HTN DM2 HLD Normocytic anemia Plan: Consultation placed to orthopedic surgeryDr. Gee cleared patient for discharge after seizure. Provide IV pain management and keep patient n.p.o. for possible surgical intervention IV fluids Basal/prandial insulin Resume home medications PT/OT FEN - Cardiac diet PPX - Heparin FULL CODE Dispo - inpatient for above History of Present Illness History of Present Illness 70-year-old female with past medical history DM2, HTN, HLD, who presents to the ED for evaluation of left hip and left arm pain after a mechanical fall down approximately 10 flights of stairs yesterday. Her family heard the fall but apparently did not witness. She began complaining of left wrist and left hip pain, 10, immediately following her fall. She denies any loss of consciousness, headache, or neck pain. Labs admission showed WBC 12.1, creatinine 1.1, hemoglobin 11.1, hematocrit 33.9, CBG 124. 05/04/2021 No acute events overnight. She did work with physical therapy today and OT. Essentially from their standpoint they believe rehab would be best for her. Will discuss further with family and recommend rehab placement. Patient's chart, labs, images were reviewed and discussed with RN Vitals/I&O Vitals/I&O: Vital Signs Date Time Temp Pulse Resp B/P (MAP) Pulse Ox O2 Delivery O2 Flow Rate FiO2 05/04/21 12:27 92 Room Air 2.0 05/04/21 10:45 98.2 92 18 165/73 (103) 98.2 I & O 05/03/21 05/03/21 05/04/21 15:00 23:00 07:00 Intake Total 1800 ml Output Total 750 ml 850 ml Balance 1050 ml -850 ml Physical Exam General: Alert, Cooperative Heart: No murmurs Lungs: Clear Abdomen: No tenderness Extremities: No edema Skin: Other (Dressings are clear dry and intact) Labs Labs: Laboratory Tests Test 05/03/21 20:18 Glucose (Fingerstick) 161 mg/dL (70-99) Assessment and Plan Assessmemt and Plan Problems Medical Problems: (1) Hypertension Status: Acute Comment Review of Relevant I have reviewed the following items donte (where applicable) has been applied. Medications: Current Medications Medications (Trade) Dose Ordered Sig/Anuj Route PRN Reason Start Time Stop Time Status Last Admin Dose Admin Simvastatin (Zocor) 10 mg HS PO 05/03/21 21:00 05/03/21 21:22 Insulin Glargine (Lantus Syringe) 8 unit QHS SQ 05/03/21 21:00 05/03/21 21:27 Justifications for Admission Other Justification JUSTINA SHAW MD May 04, 2021 14:03
[2021-05-04 14:50] VITALS: BP 171/88
[2021-05-04 20:10] VITALS: BP 150/77
[2021-05-04] MEDS: SIMVASTATIN 10 MG TABLET PO SCH (20:57)
[2021-05-04] MEDS: MAGNESIUM HYDROXIDE 2,400 MG/30 ML ORAL.SUSP. PO PRN (22:11)
[2021-05-04] MEDS: INSULIN GLARGINE SYRINGE. SQ SCH (22:18)
[2021-05-04 23:15] VITALS: BP 141/66
[2021-05-05] MEDS: HYDROcodone/APAP 5/325MG 1 TAB TABLET PO PRN ×3 (01:05→21:39)
[2021-05-05 03:45] VITALS: BP 148/66
[2021-05-05] MEDS: HEPARIN for SUB-Q USE 5,000 UNIT/ML VIAL. SQ SCH ×3 (05:49→21:44)
[2021-05-05 07:00] VITALS: BP 180/81
[2021-05-05] MEDS: INSULIN LISPRO 300 UNITS/3 ML VIAL. SQ SCH ×3 (08:00→18:02)
[2021-05-05] MEDS ORDERED: HYDR-2761 PO (09:18)
[2021-05-05] MEDS ORDERED: SENN1TAB99 PO (09:18)
--- NOTE | 2021-05-05 09:21 | SNU/HH DC ---
DISCHARGE WITH HOME HEALTH DISCHARGE INFORMATION: Discharge Date: May 05, 2021 Final Diagnosis: Problems Medical Problems: (1) Hypertension Status: Acute Condition on Discharge: Stable CODE STATUS: Code Status: Full HOME HEALTH: Face to Face: I certify this patient is under my care and that I, or a nurse practitioner or physician's store administrative assistant working with me, had a face to face encounter that meets the physician face to face encounter requirements with this patient on []. Medical Complications: Falls, S/P Joint Replacement Alf For: Assess Cardiopulm Status, Assess & Educate Safety, Assess/Skilled Observatio, Medication Management, Pain Management RN For Eval/Treatment: Yes Physical Therapy For: Evalulation/Treatment Occupational Therapy For: Evaluation/Treatment Home Health Aide For: Self-care Pt Meets Homebound Status: Poor coordination w/ amb., Extreme weakness w/ amb., Fatigue w/ amb., Frequent falls w/ injury, Limited distance walking, Unable to negotiate home POST DISCHARGE ORDERS: Activity Instructions for Disc: Activity as tolerated Weight Bearing Status after Di: Partial weight bearing DIET AFTER DISCHARGE: Cardiac FOLLOW-UP: Follow up with: PCP within 2 weeks of discharge Follow Up With: Orthopedic surgery as scheduled DC TO SNF LABS: CBC, CMP TREATMENT/EQUIPMENT ORDERS: Adaptive Equipment Issued: Platform walker CERTIFICATION STATEMENT: Certification Statement: Certification Statement: Based on the above finding, I certify that this patient is confined to the home and needs intermittent retirement care, physical therapy and/or speech therapy, or continues to need occupational therapy.~ This patient is under my care, and I have initiated the establishment of the plan of care.~ This patient will be followed by myself or a community physician who will periodically review the plan of care. Home Meds Active Scripts Hydrocodone Bit/Acetaminophen (HYDROCODONE-APAP 5-325 ) 1 Tab Tablet, 1 TAB PO PRN Q6-8HRS PRN for MILD PAIN 1-3 for 5 Days, #20 TAB Prov:JUSTINA SHAW MD 05/05/21 Reported Medications Simvastatin (SIMVASTATIN) 10 Mg Tablet, 10 MG PO HS for FOR CHOLESTEROL 05/03/21 Metoprolol Tartrate (METOPROLOL TARTRATE) 25 Mg Tablet, 25 MG PO BID for FOR HYPERTENSION 05/03/21 Metformin Hcl (METFORMIN HCL) 500 Mg Tablet, 500 MG PO BIDWMEALS for ANTI- DIABETIC, TAB 0 Refills 04/03/17 JUSTINA SHAW MD May 05, 2021 09:21
--- NOTE | 2021-05-05 09:22 | SNU/HH DC ---
DISCHARGE ORDERS DISCHARGE INFORMATION: DISCHARGE DATE: May 05, 2021 FINAL DIAGNOSIS Problems Medical Problems: (1) Hypertension Status: Acute CONDITION ON DISCHARGE: Stable CODE STATUS: Code Status: Full LONGTERM: SNF STAY <30 DAYS: Yes POST DISCHARGE ORDERS: ACTIVITY ORDERS: Activity as tolerated WEIGHT BEARING STATUS: Partial weight bearing DIET AFTER DISCHARGE: Cardiac FOLLOW-UP: PHYSICIAN FOLLOW-UP: PCP within 2 weeks of discharge ADDITIONAL FOLLOW-UP: Orthopedic surgery as scheduled LAB ORDERS FOR FOLLOW-UP: CBC, CMP TREATMENT/EQUIPMENT ORDERS: ADAPTIVE EQUIPMENT NEEDED: Platform walker Physical Therapy For: Evalulation/Treatment Occupational Therapy For: Evaluation/Treatment DISCHARGE MEDICATIONS: Home Meds Active Scripts Hydrocodone Bit/Acetaminophen (HYDROCODONE-APAP 5-325 ) 1 Tab Tablet, 1 TAB PO PRN Q6-8HRS PRN for MILD PAIN 1-3 for 5 Days, #20 TAB Prov:JUSTINA SHAW MD 05/05/21 Reported Medications Simvastatin (SIMVASTATIN) 10 Mg Tablet, 10 MG PO HS for FOR CHOLESTEROL 05/03/21 Metoprolol Tartrate (METOPROLOL TARTRATE) 25 Mg Tablet, 25 MG PO BID for FOR HYPERTENSION 05/03/21 Metformin Hcl (METFORMIN HCL) 500 Mg Tablet, 500 MG PO BIDWMEALS for ANTI- DIABETIC, TAB 0 Refills 04/03/17 JUSTINA SHAW MD May 05, 2021 09:22
[2021-05-05] MEDS: METOPROLOL TART IMMED RELEASE 25 MG TABLET. PO SCH ×2 (09:29→21:39)
[2021-05-05 11:00] VITALS: BP 146/61
[2021-05-05 15:00] VITALS: BP 175/79
[2021-05-05 19:00] VITALS: BP 221/94
[2021-05-05] MEDS: SIMVASTATIN 10 MG TABLET PO SCH (21:39)
[2021-05-05] MEDS: INSULIN GLARGINE SYRINGE. SQ SCH (21:39)
[2021-05-05] MEDS: MAGNESIUM HYDROXIDE 2,400 MG/30 ML ORAL.SUSP. PO PRN (21:39)
[2021-05-05 23:00] VITALS: BP 208/99
[2021-05-06] MEDS: hydrALAZINE 20 MG/ML VIAL. IVP PRN ×3 (01:46→20:36)
[2021-05-06 03:00] VITALS: BP 206/96
[2021-05-06] MEDS: LABETALOL 20 MG/4 ML DISP.SYRIN. IVP PRN (03:30)
[2021-05-06] MEDS: HYDROcodone/APAP 5/325MG 1 TAB TABLET PO PRN ×2 (05:27→22:21)
[2021-05-06] MEDS: HEPARIN for SUB-Q USE 5,000 UNIT/ML VIAL. SQ SCH ×3 (05:34→22:20)
[2021-05-06 07:00] VITALS: BP 192/89
[2021-05-06] MEDS: CHLORTHALIDONE 25 MG TABLET. PO SCH (08:49)
[2021-05-06] MEDS: METOPROLOL TART IMMED RELEASE 25 MG TABLET. PO SCH ×2 (08:49→20:36)
[2021-05-06] MEDS: LOSARTAN POTASSIUM 50 MG TABLET. PO SCH (08:49)
[2021-05-06] MEDS: INSULIN LISPRO 300 UNITS/3 ML VIAL. SQ SCH ×3 (08:53→17:55)
[2021-05-06 11:00] VITALS: BP 192/85
--- NOTE | 2021-05-06 13:03 | PDOC ---
[facility] PROGRESS NOTE Date of Service DOS: DATE: 05/05/21 TIME: 13:02 Chief Complaint Chief Complaint Acute comminuted distal radius fracture. Status post closed reduction with percutaneous pin fixation Acute nondisplaced fracture at the base of the ulnar styloid and ORIF of the left wrist Acute nondisplaced left femoral neck fracture DREW due to vasomotor nephropathy HTN DM2 HLD Normocytic anemia Plan: Orthopedic surgery okay for discharge when stable Provide IV pain management and keep patient n.p.o. for possible surgical intervention IV fluids Basal/prandial insulin Resume home medications PT/OT FEN - Cardiac diet PPX - Heparin FULL CODE Dispo - inpatient for above History of Present Illness History of Present Illness 70-year-old female with past medical history DM2, HTN, HLD, who presents to the ED for evaluation of left hip and left arm pain after a mechanical fall down approximately 10 flights of stairs yesterday. Her family heard the fall but apparently did not witness. She began complaining of left wrist and left hip pain, 10/10, immediately following her fall. She denies any loss of consciousness, headache, or neck pain. Labs admission showed WBC 12.1, creatinine 1.1, hemoglobin 11.1, hematocrit 33.9, CBG 124. 05/04/2021 No acute events overnight. She did work with physical therapy today and OT. Essentially from their standpoint they believe rehab would be best for her. Will discuss further with family and recommend rehab placement. Patient's chart, labs, images were reviewed and discussed with RN 05/05/2021 No acute events overnight. Patient seen and examined bedside. PT OT recommends SNF placement. No concerns from nursing at this time. Patient's chart, labs, images were reviewed and discussed with RN Vitals/I&O Vitals/I&O: Vital Signs Date Time Temp Pulse Resp B/P (MAP) Pulse Ox O2 Delivery O2 Flow Rate FiO2 05/06/21 12:57 80 192/85 05/06/21 11:00 97.4 18 97 Room Air 97.4 05/05/21 23:00 2.0 I & O 05/05/21 05/05/21 05/06/21 15:00 23:00 07:00 Intake Total 600 ml 150 ml Output Total 1500 ml Balance 600 ml -1350 ml Physical Exam General: Alert, Cooperative Heart: No murmurs Lungs: Clear Abdomen: No tenderness Extremities: No edema Skin: Other (Dressings are clear dry and intact) Labs Labs: Laboratory Tests Test 05/05/21 17:01 05/05/21 20:09 05/06/21 08:09 05/06/21 12:12 Glucose (Fingerstick) 210 mg/dL (70-99) 94 mg/dL (70-99) 157 mg/dL (70-99) 143 mg/dL (70-99) Assessment and Plan Assessmemt and Plan Problems Medical Problems: (1) Hypertension Status: Acute Comment Review of Relevant I have reviewed the following items donte (where applicable) has been applied. Medications: Current Medications Medications (Trade) Dose Ordered Sig/Anuj Route PRN Reason Start Time Stop Time Status Last Admin Dose Admin Losartan Potassium (Cozaar) 50 mg DAILY PO 05/06/21 09:00 05/06/21 08:49 Chlorthalidone (Thalitone) 25 mg DAILY PO 05/06/21 09:00 05/06/21 08:49 Justifications for Admission Other Justification JUSTINA SHAW MD May 06, 2021 13:03
--- NOTE | 2021-05-06 13:05 | PDOC ---
[facility] PROGRESS NOTE Date of Service DOS: DATE: 05/06/21 TIME: 13:04 Chief Complaint Chief Complaint Acute comminuted distal radius fracture. Status post closed reduction with percutaneous pin fixation Acute nondisplaced fracture at the base of the ulnar styloid and ORIF of the left wrist Acute nondisplaced left femoral neck fracture DREW due to vasomotor nephropathy Hypertensive urgency HTN DM2 HLD Normocytic anemia Plan: I have started her on IV antihypertensive medication for systolic blood pressure greater than 180. Started chlorthalidone and lisinopril. Orthopedic surgery okay for discharge when stable Provide IV pain management and keep patient n.p.o. for possible surgical intervention IV fluids Basal/prandial insulin Resume home medications PT/OT FEN - Cardiac diet PPX - Heparin FULL CODE Dispo - inpatient for above History of Present Illness History of Present Illness 70-year-old female with past medical history DM2, HTN, HLD, who presents to the ED for evaluation of left hip and left arm pain after a mechanical fall down approximately 10 flights of stairs yesterday. Her family heard the fall but apparently did not witness. She began complaining of left wrist and left hip pain, 10/10, immediately following her fall. She denies any loss of consciousness, headache, or neck pain. Labs admission showed WBC 12.1, creatinine 1.1, hemoglobin 11.1, hematocrit 33.9, CBG 124. 05/04/2021 No acute events overnight. She did work with physical therapy today and OT. Essentially from their standpoint they believe rehab would be best for her. Will discuss further with family and recommend rehab placement. Patient's chart, labs, images were reviewed and discussed with RN 05/05/2021 No acute events overnight. Patient seen and examined bedside. PT OT recommends SNF placement. No concerns from nursing at this time. Patient's chart, labs, images were reviewed and discussed with RN 05/06/2021 No major events overnight. Patient seen and examined bedside. No concerns nursing. No complaints with the patient. Working well with PT OT. Blood pressure sustained high in the 200s to 190 systolic. Antihypertensive regimen has been initiated. Patient's chart, labs, images were reviewed and discussed with RN Vitals/I&O Vitals/I&O: Vital Signs Date Time Temp Pulse Resp B/P (MAP) Pulse Ox O2 Delivery O2 Flow Rate FiO2 05/06/21 12:57 80 192/85 05/06/21 11:00 97.4 18 97 Room Air 97.4 05/05/21 23:00 2.0 I & O 05/05/21 05/05/21 05/06/21 15:00 23:00 07:00 Intake Total 600 ml 150 ml Output Total 1500 ml Balance 600 ml -1350 ml Physical Exam General: Alert, Cooperative Heart: No murmurs Lungs: Clear Abdomen: No tenderness Extremities: No edema Skin: Other (Dressings are clear dry and intact) Labs Labs: Laboratory Tests Test 05/05/21 17:01 05/05/21 20:09 05/06/21 08:09 05/06/21 12:12 Glucose (Fingerstick) 210 mg/dL (70-99) 94 mg/dL (70-99) 157 mg/dL (70-99) 143 mg/dL (70-99) Assessment and Plan Assessmemt and Plan Problems Medical Problems: (1) Hypertension Status: Acute Comment Review of Relevant I have reviewed the following items donte (where applicable) has been applied. Medications: Current Medications Medications (Trade) Dose Ordered Sig/Anuj Route PRN Reason Start Time Stop Time Status Last Admin Dose Admin Losartan Potassium (Cozaar) 50 mg DAILY PO 05/06/21 09:00 05/06/21 08:49 Chlorthalidone (Thalitone) 25 mg DAILY PO 05/06/21 09:00 05/06/21 08:49 Justifications for Admission Other Justification JUSTINA SHAW MD May 06, 2021 13:05
--- NOTE | 2021-05-06 14:59 | PDOC4 ---
OPERATIVE NOTE Date: Date: May 04, 2021 Pre-Op Diagnosis: Intertrochanteric fracture left hip Post-Op Diagnosis: Same Procedure Performed: ORIF hip left with gamma nail fixation Surgeon: Marlen Anesthesia Type: General Blood Loss: 75 cc Findings: See dictation MEREDITH FUNG Jr., DO May 06, 2021 14:59
--- NOTE | 2021-05-06 15:03 | PDOC4 ---
OPERATIVE NOTE Date: Date: May 04, 2021 Pre-Op Diagnosis: Subcapital fracture left hip impacted Comminuted intra-articular fracture left distal radius Post-Op Diagnosis: Same Procedure Performed: Percutaneous pinning left hip next ORIF left distal radius Surgeon: Marlen Anesthesia Type: General Blood Loss: 20 cc Specimans Obtained: None Findings: See dictation MEREDITH FUNG Jr., DO May 06, 2021 15:03
[2021-05-06 19:00] VITALS: BP 189/98
[2021-05-06] MEDS: SIMVASTATIN 10 MG TABLET PO SCH (20:36)
[2021-05-06] MEDS: INSULIN GLARGINE SYRINGE. SQ SCH (20:45)
[2021-05-06 23:35] VITALS: BP 145/73
[2021-05-07 03:40] VITALS: BP 128/71
[2021-05-07] MEDS: HEPARIN for SUB-Q USE 5,000 UNIT/ML VIAL. SQ SCH (06:06)
[2021-05-07] MEDS: HYDROcodone/APAP 5/325MG 1 TAB TABLET PO PRN ×2 (06:07→10:15)
[2021-05-07 07:00] VITALS: BP 159/85
[2021-05-07 08:32] VITALS: BP 159/85
[2021-05-07] MEDS: LOSARTAN POTASSIUM 50 MG TABLET. PO SCH (08:32)
[2021-05-07] MEDS: CHLORTHALIDONE 25 MG TABLET. PO SCH (08:32)
[2021-05-07] MEDS: METOPROLOL TART IMMED RELEASE 25 MG TABLET. PO SCH (08:32)
[2021-05-07] MEDS: INSULIN LISPRO 300 UNITS/3 ML VIAL. SQ SCH (08:36)
--- NOTE | 2021-05-07 10:30 | NUR ---
Patient left with her daughters around 1030. IV discontinued without complications. Splint/cast intact on LUE with a sling in place for comfort. Dressing to left hip CDI with extra tape given for reinforcement if needed. Appointment made with Dr Gee on 05/13 at 1:30 for a follow up. Patient left with all her belongings. No concerns noted at discharge. A walker will be sent to the patients house per urban planner.
--- NOTE | 2021-05-09 14:38 | PDOC3 ---
[facility]-Discharge Summary Date of Admission: Date of Admission: May 03, 2021 Date of Discharge: Date of Discharge: May 07, 2021 Discharge Diagnosis: Discharge Diagnosis: Acute comminuted distal radius fracture. Status post closed reduction with percutaneous pin fixation Acute nondisplaced fracture at the base of the ulnar styloid and ORIF of the left wrist Acute nondisplaced left femoral neck fracture DREW due to vasomotor nephropathy Hypertensive urgency HTN DM2 HLD Normocytic anemia Hospital Course: Hospital Course: 70-year-old female with past medical history DM2, HTN, HLD, who presents to the ED for evaluation of left hip and left arm pain after a mechanical fall down approximately 10 flights of stairs yesterday. Her family heard the fall but apparently did not witness. She began complaining of left wrist and left hip pain, 10/10, immediately following her fall. She denies any loss of consciousness, headache, or neck pain. Labs admission showed WBC 12.1, creatinine 1.1, hemoglobin 11.1, hematocrit 33.9, CBG 124. 05/04/2021 No acute events overnight. She did work with physical therapy today and OT. Essentially from their standpoint they believe rehab would be best for her. Will discuss further with family and recommend rehab placement. Patient's chart, labs, images were reviewed and discussed with RN 05/05/2021 No acute events overnight. Patient seen and examined bedside. PT OT recommends SNF placement. No concerns from nursing at this time. Patient's chart, labs, images were reviewed and discussed with RN 05/06/2021 No major events overnight. Patient seen and examined bedside. No concerns nursing. No complaints with the patient. Working well with PT OT. Blood pressure sustained high in the 200s to 190 systolic. Antihypertensive regimen has been initiated. Patient's chart, labs, images were reviewed and discussed with RN By day of discharge patient was clinically stable. PT OT recommending SNF placement for rehabilitation. Family was insistent upon taking patient home with outpatient physical therapy. Patient is a high risk for readmission. Rest of hospital course was uneventful. Disposition: Disposition/Orders: D/C to Home w/ HH Activity: Activity: Resume previous activity Diet: Diet: Cardiac Medications: Home Meds Active Scripts Sennosides/Docusate Sodium (Senna-Docusate Sodium Tablet) 1 Each Tablet, 1 TAB PO DAILY PRN for CONSTIPATION for 20 Days, #20 TAB 0 Refills Prov:JUSTINA SHAW MD 05/05/21 Hydrocodone Bit/Acetaminophen (HYDROCODONE-APAP 5-325 ) 1 Tab Tablet, 1 TAB PO PRN Q6-8HRS PRN for MILD PAIN 1-3 for 5 Days, #20 TAB Prov:JUSTINA SHAW MD 05/05/21 Reported Medications Simvastatin (SIMVASTATIN) 10 Mg Tablet, 10 MG PO HS for FOR CHOLESTEROL 05/03/21 Metoprolol Tartrate (METOPROLOL TARTRATE) 25 Mg Tablet, 25 MG PO BID for FOR HYPERTENSION 05/03/21 Metformin Hcl (METFORMIN HCL) 500 Mg Tablet, 500 MG PO BIDWMEALS for ANTI- DIABETIC, TAB 0 Refills 04/03/17 Scheduled Metformin Hcl (Metformin Hcl), 500 MG PO BIDWMEALS, (Reported) Metoprolol Tartrate (Metoprolol Tartrate), 25 MG PO BID, (Reported) Simvastatin (Simvastatin), 10 MG PO HS, (Reported) Scheduled PRN Hydrocodone Bit/Acetaminophen (Hydrocodone-Apap 5-325 ), 1 TAB PO PRN Q6-8HRS PRN for MILD PAIN 1-3 Sennosides/Docusate Sodium (Senna-Docusate Sodium Tablet), 1 TAB PO DAILY PRN for CONSTIPATION Total Time: Total Time: Total time spent was 40 minutes in preparing scripts, discharge planning with SWI and RN and preparing this discharge summary Patient seen and examined on day of discharge. No acute abnormal findings. Justicifation of Admission Dx: Justifications for Admission: Justification of Admission Dx: Yes Fracture: Fracture JUSTINA SHAW MD May 09, 2021 14:38
== END 2021-05-07 10:36 | disposition home health service (06) | DRG 480 ==
LOC: ER 19:02 → 4 NORTH 22:41
PROVIDERS: ADMIT Family Medicine; ATTEND Family Medicine
PROC: 0QS704Z Reposition Left Upper Femur with Internal Fixation Device, Open Approach (ICD-10-PCS; principal; 2021-05-03 10:00)
PROC: 0PSJ04Z Reposition Left Radius with Internal Fixation Device, Open Approach (ICD-10-PCS; 2021-05-03 10:00)
DX: S52.572A Other intraarticular fracture of lower end of left radius, initial encounter for closed fracture (principal); S72.012A Unspecified intracapsular fracture of left femur, initial encounter for closed fracture; N17.0 Acute kidney failure with tubular necrosis; S52.613A Displaced fracture of unspecified ulna styloid process, initial encounter for closed fracture; D64.9 Anemia, unspecified; E11.9 Type 2 diabetes mellitus without complications; E78.5 Hyperlipidemia, unspecified; I10 Essential (primary) hypertension; I16.0 Hypertensive urgency; W10.9XXA Fall (on) (from) unspecified stairs and steps, initial encounter; Z82.49 Family history of ischemic heart disease and other diseases of the circulatory system; Z20.822 Contact with and (suspected) exposure to COVID-19
CPT/HCPCS: 36415; 70450; 71045; 72125; 72170; 73070; 73120; 73501; 76000; 80048; 80053; 82553; 82962; 83735; 84484; 85025; 85610; 85730; 87426; 93005; 96361; 96374; 96375; 96376; 99406; A4930; A6223; A6253; A6402; A6449; A6452; C1713; C1769; J0360; J1100; J1170; J1644; J1815; J2270; J2370; J2405; J2704; J3010; J3490; J7030; J7120; U0003; U0005; 97110-GP; 97530-GO; 97530-GP; 97535-GO; 99285-25; G0378

== ENCOUNTER 2021-08-10 10:52 | Emergency (ER) | payer OTHER ==
[~2021-08-10] VITALS: Ht 147.3 cm; Wt 45.0 kg
[~2021-08-10 10:52] MED LIST changes: +HYDR-2761 PO; -LISI-517 PO; +LISI5TAB15 PO; +METO25TA4 PO; +SENN1TAB99 PO; +SIMV10TA15 PO
[2021-08-10] MEDS ORDERED: CYCLOBENZAPRINE 10 MG TABLET. PO ONE (12:00)
--- NOTE | 2021-08-10 12:24 | RAD ---
EXAMINATION: XR CHEST 1V CLINICAL HISTORY: Hypertensive urgency rule out endorgan damage EXAM DATE/TIME: 08/10/2021 12:05 PM COMPARISON: 05/02/2021 FINDINGS: Lines, Tubes, and Devices: None. Cardiomediastinal Silhouette: Cardiomegaly and aortic atherosclerotic calcification, similar to prior study. Lungs and Pleura: No evidence of focal airspace consolidation or pleural effusion. Nonspecific inters titial prominence, similar to prior study. Bones and Soft Tissues: No acute osseous abnormality. IMPRESSION: No evidence of acute cardiopulmonary abnormality. Electronically signed by: Gera Kelly DO (08/10/2021 12:21 PM) [id number]
[2021-08-10 12:37] LABS: CALCIUM 9.2 mg/dL (8.5-10.1); GFR 54.8; POTASSIUM 4.3 mmol/L (3.5-5.1)
--- NOTE | 2021-08-10 12:37 | RAD ---
CT Head without contrast 08/10/2021 12:10 PM Indication: Reason: Hypertensive urgency rule out endorgan damage / Spl. Instructions: / History: Comparison: CT head May 02, 2021 Findings: No intracranial hemorrhage is seen. No evidence of acute territorial infarct is seen. Note that CT is limited in sensitivity for acute ischemia. Age-related atrophic changes are noted. Ther e is patchy periventricular and deep white matter hypoattenuation which is nonspecific, but most comm only relates to chronic small vessel disease. No abnormal extra axial fluid collection is identified . No mass effect or midline shift is seen. No acute osseous abnormalities are seen. Impression: 1. No acute intracranial process identified 2. Age-related atrophy, and evidence of chronic small vessel disease as described CT DOSING PQRS STATEMENT: One or more of the following individualized dose reduction techniques were utilized for this examinat ion: 1. Automated exposure control 2. Adjustment of the mA and/or kV according to patient size 3. Use of iterative reconstruction technique Electronically signed by: Osbaldo Shirley MD (08/10/2021 12:34 PM) [id number]
[2021-08-10 12:39] LABS: BILIRUBIN,URINE NEGATIVE (NEG); CLARITY,URINE CLEAR; COLOR,URINE YELLOW; NITRITE,URINE NEGATIVE (NEG); PROTEIN,URINE NEGATIVE (NEG-TRACE); UROBILINOGEN,URINE 0.2 mg/dL (0.2 mg/dL)
[2021-08-10 12:42] LABS: ALBUMIN 3.7 g/dL (3.4-5.0); ALBUMIN/GLOBULIN RATIO 0.9 (1.0-1.7); TOTAL BILIRUBIN 0.3 mg/dL (0.2-1.0); TOTAL PROTEIN 7.7 g/dL (6.4-8.2)
[2021-08-10 12:47] LABS: BACTERIA,URINE FEW /HPF (0-FEW); RBC,URINE 0 /HPF (0-2)
[2021-08-10 13:03] LABS: BASO # 0.1 x10^3/uL (0.0-0.2); BASO % 1 % (0-3); EOS # 0.1 x10^3/uL (0.0-0.7); EOS % 2 % (0-3); HEMATOCRIT 33.1 % (36.0-47.0); HEMOGLOBIN 10.8 g/dL (12.0-15.5); LYMPH # 1.5 x10^3/uL (1.0-4.8); LYMPH % 21 % (24-48); MEAN CORPUSCULAR HEMOGLOBIN 27 pg (25-35); MEAN CORPUSCULAR HGB CONC 33 g/dL (31-37); MEAN CORPUSCULAR VOLUME 82 fL (79-100); MONO # 0.4 x10^3/uL (0.0-1.1); MONO % 6 % (0-9); NEUT # 5.2 x10^3/uL (1.8-7.7); NEUT % 71 % (31-73); PLATELET COUNT 177 x10^3/uL (140-400); RED BLOOD COUNT 4.03 x10^6/uL (3.50-5.40); RED CELL DISTRIBUTION WIDTH 14.2 % (11.5-14.5); WHITE BLOOD COUNT 7.3 x10^3/uL (4.0-11.0)
[2021-08-10] MEDS ORDERED: LABETALOL 20 MG/4 ML DISP.SYRIN. IVP ONE (13:45)
[2021-08-10] MEDS ORDERED: KETOROLAC 30 MG/ML VIAL. IVP ONE (13:45)
[2021-08-10 14:35] VITALS: BP 215/100
[2021-08-10] MEDS ORDERED: IBUP-1007 PO (14:46)
[2021-08-10] MEDS ORDERED: CYCL5TAB PO (14:46)
--- NOTE | 2021-08-10 14:46 | PHYS DOC ---
Past Medical History Past Medical History: Diabetes-Type II, Hypertension Past Surgical History: No Surgical History Smoking Status: Current Every Day Smoker Alcohol Use: None Drug Use: None General Adult EDM: Chief Complaint: BACK PAIN OR INJURY HPI: HPI: Patient is a 70-year-old female who presents to the emergency department complaining of straining her low back muscles while standing up in the bathtub today just prior to arrival to the emergency department. Patient did not take any pain medications prior to arrival to the emergency department. Patient denies any loss of motor strength or any problems walking. Reports she has high blood pressure but has not taken her blood pressure medications this morning. Denies history of cigarette smoking, denies history of alcohol use or illicit drug use, denies IV drug use history, denies history of immunosuppression, cancers, fevers or chills, denies loss of bowel or bladder continence, denies urinary retention, denies numbness or tingling to her buttocks or periarea. Denies radiation of pain down her lower extremities. Denies other physical complaints or physical concerns. Review of Systems: Review of Systems: 14 body systems of review of systems have been reviewed. See HPI for pertinent positives and negative responses, otherwise all other systems are negative, nonpertinent or noncontributory. Constitutional: Negative except as outlined in HPI above. Skin: Negative except as outlined in HPI above. Eyes: Negative except as outlined in HPI above. HENT: Negative except as outlined in HPI above. Respiratory: Negative except as outlined in HPI above. Cardiovascular: Negative except as outlined in HPI above. GI: Negative except as outlined in HPI above. : Negative except as outlined in HPI above. Musculoskeletal: Negative except as outlined in HPI above. Integument: Negative except as outlined in HPI above. Neurologic: Negative except as outlined in HPI above. Endocrine: Negative except as outlined in HPI above. Lymphatic: Negative except as outlined in HPI above. Psychiatric: Negative except as outlined in HPI above. Heart Score: C/O Chest Pain: No Risk Factors: Risk Factors: DM, Current or recent (<one month) smoker, HTN, HLP, family history of CAD, obesity. Risk Scores: Score 0 - 3: 2.5% MACE over next 6 weeks - Discharge Home Score 4 - 6: 20.3% MACE over next 6 weeks - Admit for Clinical Observation Score 7 - 10: 72.7% MACE over next 6 weeks - Early Invasive Strategies Current Medications: Current Medications Medications (Trade) Dose Ordered Sig/Anuj Start Time Stop Time Status Last Admin Dose Admin Cyclobenzaprine HCl (Flexeril) 5 mg 1X ONCE 08/10/21 12:00 08/10/21 12:03 DC 08/10/21 12:16 5 MG Ketorolac Tromethamine (Toradol 30mg Vial) 30 mg 1X ONCE 08/10/21 13:45 08/10/21 13:46 DC 08/10/21 13:54 30 MG Labetalol HCl (Normodyne Iv Push) 20 mg 1X ONCE 08/10/21 13:45 08/10/21 13:46 DC 08/10/21 13:55 20 MG Allergies: Allergies: Allergies Coded Allergies Type Severity Reaction Last Updated Verified No Known Drug Allergies 06/10/16 No Physical Exam: PE: Constitutional: Well developed, well nourished, no acute distress, non-toxic appearance. 70-year-old female in no apparent distress. HENT: Normocephalic, atraumatic. Eyes: Conjunctiva normal, no discharge. Neck: Normal range of motion, no stridor. Cardiovascular: No cyanosis appreciated, distal cap refill less than 2 seconds. Lungs & Thorax: Patient is in no respiratory distress, no audible adventitious lung sounds appreciated. Abdomen: Nontender, no abnormalities noted. Skin: Warm, dry, no erythema, no rash. Back: No deformities appreciated, no left-sided or right-sided CVA TTP, no midline spinal tenderness to palpation, pain elicited with palpation to the right and left lumbar muscular structures. No radiation of pain. No deformities or skin discoloration appreciated. Extremities: No tenderness, no cyanosis, no clubbing, ROM intact, no edema. 5/5 motor strength of lower extremities with hip and knee flexion/extension, knee abduction, plantar and dorsiflexion at the ankle, dorsiflexion of the toes bilaterally, distal cap refill less than 2 seconds, 2+ dorsalis pedis pulses bilaterally. Neurologic: Alert and oriented X 3, normal motor function, normal sensory function, no focal deficits noted. Psychologic: Affect normal, judgement normal, mood normal. Current Patient Data: Labs: Laboratory Tests Test 08/10/21 11:45 08/10/21 12:25 08/10/21 12:46 Sodium Level 139 mmol/L (136-145) Potassium Level 4.3 mmol/L (3.5-5.1) Chloride Level 104 mmol/L (98-107) Carbon Dioxide Level 26 mmol/L (21-32) Anion Gap 9 (6-14) Blood Urea Nitrogen 18 mg/dL (7-20) Creatinine 1.0 mg/dL (0.6-1.0) Estimated GFR (Cockcroft-Gault) 54.8 BUN/Creatinine Ratio 18 (6-20) Glucose Level 145 mg/dL (70-99) H Calcium Level 9.2 mg/dL (8.5-10.1) Total Bilirubin 0.3 mg/dL (0.2-1.0) Aspartate Amino Transferase (AST) 20 U/L (15-37) Alanine Aminotransferase (ALT) 20 U/L (14-59) Alkaline Phosphatase 90 U/L (46-116) Troponin I High Sensitivity 6 ng/L (4-50) IE-Ayy-F-Type Natriuretic Peptide 933 pg/mL (0-124) H Total Protein 7.7 g/dL (6.4-8.2) Albumin 3.7 g/dL (3.4-5.0) Albumin/Globulin Ratio 0.9 (1.0-1.7) L Urine Collection Type Unknown Urine Color Yellow Urine Clarity Clear Urine pH 6.0 (<5.0-8.0) Urine Specific [place] <=1.005 (1.000-1.030) Urine Protein Negative mg/dL (NEG-TRACE) Urine Glucose (UA) Negative mg/dL (NEG) Urine Ketones (Stick) Negative mg/dL (NEG) Urine Blood Negative (NEG) Urine Nitrite Negative (NEG) Urine Bilirubin Negative (NEG) Urine Urobilinogen Dipstick 0.2 mg/dL (0.2 mg/dL) Urine Leukocyte Esterase Trace (NEG) Urine RBC 0 /HPF (0-2) Urine WBC 1-4 /HPF (0-4) Urine Squamous Epithelial Cells Few /LPF Urine Bacteria Few /HPF (0-FEW) White Blood Count 7.3 x10^3/uL (4.0-11.0) Red Blood Count 4.03 x10^6/uL (3.50-5.40) Hemoglobin 10.8 g/dL (12.0-15.5) L Hematocrit 33.1 % (36.0-47.0) L Mean Corpuscular Volume 82 fL (79-100) Mean Corpuscular Hemoglobin 27 pg (25-35) Mean Corpuscular Hemoglobin Concent 33 g/dL (31-37) Red Cell Distribution Width 14.2 % (11.5-14.5) Platelet Count 177 x10^3/uL (140-400) Neutrophils (%) (Auto) 71 % (31-73) Lymphocytes (%) (Auto) 21 % (24-48) L Monocytes (%) (Auto) 6 % (0-9) Eosinophils (%) (Auto) 2 % (0-3) Basophils (%) (Auto) 1 % (0-3) Neutrophils # (Auto) 5.2 x10^3/uL (1.8-7.7) Lymphocytes # (Auto) 1.5 x10^3/uL (1.0-4.8) Monocytes # (Auto) 0.4 x10^3/uL (0.0-1.1) Eosinophils # (Auto) 0.1 x10^3/uL (0.0-0.7) Basophils # (Auto) 0.1 x10^3/uL (0.0-0.2) Laboratory Tests 08/10/21 12:46 Laboratory Tests 08/10/21 11:45 Vital Signs: Vital Signs Date Time Temp Pulse Resp B/P (MAP) Pulse Ox O2 Delivery O2 Flow Rate FiO2 08/10/21 13:55 79 218/95 08/10/21 11:35 97.8 16 99 Room Air 97.8 EKG: EKG: EKG performed at 1219 by ED nursing staff shows a normal sinus rhythm without other ectopy, noted inverted T wave with less than [address] depression leads V3, V4, V5, and V6. Heart rate 84 bpm, [place] interval 0.120, QTc interval 0.426, no acute STEMI STEMI appreciated, EKG interpreted by ED attending physician Dr. Mcmullen. Radiology/Procedures: Radiology/Procedures: REASON: Hypertensive urgency rule out endorgan damage PROCEDURE: CT HEAD WO CONTRAST CT Head without contrast 08/10/2021 12:10 PM Indication: Reason: Hypertensive urgency rule out endorgan damage / Spl. Instructions: / History: Comparison: CT head May 02, 2021 Findings: No intracranial hemorrhage is seen. No evidence of acute territorial infarct is seen. Note that CT is limited in sensitivity for acute ischemia. Age-related atrophic changes are noted. There is patchy periventricular and deep white matter hypoattenuation which is nonspecific, but most commonly relates to chronic small vessel disease. No abnormal extra axial fluid collection is identified. No mass effect or midline shift is seen. No acute osseous abnormalities are seen. Impression: 1. No acute intracranial process identified 2. Age-related atrophy, and evidence of chronic small vessel disease as described CT DOSING PQRS STATEMENT: One or more of the following individualized dose reduction techniques were utilized for this examination: 1. Automated exposure control 2. Adjustment of the mA and/or kV according to patient size 3. Use of iterative reconstruction technique Electronically signed by: Osbaldo Shirley MD (08/10/2021 12:34 PM) [id number] STATUS: PRE ER ORD. PHYSICIAN: ZORAN ALVARENGA APRN REASON: Hypertensive urgency rule out endorgan damage PROCEDURE: CHEST AP ONLY EXAMINATION: XR CHEST 1V CLINICAL HISTORY: Hypertensive urgency rule out endorgan damage EXAM DATE/TIME: 08/10/2021 12:05 PM COMPARISON: 05/02/2021 FINDINGS: Lines, Tubes, and Devices: None. Cardiomediastinal Silhouette: Cardiomegaly and aortic atherosclerotic calcification, similar to prior study. Lungs and Pleura: No evidence of focal airspace consolidation or pleural effusion. Nonspecific interstitial prominence, similar to prior study. Bones and Soft Tissues: No acute osseous abnormality. IMPRESSION: No evidence of acute cardiopulmonary abnormality. Electronically signed by: Gera Kelly DO (08/10/2021 12:21 PM) [id number] Course & Med Decision Making: Course & Med Decision Making Pertinent Labs and Imaging studies reviewed. (See chart for details) 70-year-old female, vital signs reviewed, presents to the emergency department concerning low back pain after lifting up to a standing position while in the bathtub this morning prior to arrival to the emergency department. Patient's physical examination consistent with lumbar strain. However patient presents with hypertensive urgency without specific symptomology. Patient's blood pressure 250/115, denies headaches, chest pains, dizziness, shortness of breath, increased or decreased urination, denies seeing blood in her stool. Discussed ED presentation and case with ED attending physician Dr. Mcmullen who recommended p.o. muscle relaxer, hold other medications pending ruling out endorgan damage. Will order EKG, chest x-ray, CT head, CBC, CMP, troponin I, proBNP, urinalysis assay. There is no saddle anesthesia, no midline spinal tenderness, will defer lumbar imaging. Patient is EKG concerning for inverted T waves in lead V3, V4, V5, V6. This is new from most recent EKG performed on 04/17/2021. Patient continues to deny chest pain or discomfort. Patient's troponin high-sensitivity nonconcerning, CBC, CMP nonconcerning for endorgan damage, urinalysis assay was negative for hematuria, proteinuria. proBNP NT level slightly elevated at 933. Patient was given 5 mg p.o. cyclobenzaprine and 30 mg of IV Toradol along with 20 mg IV labetalol. After period of time, patient reports pain relief with medications given, blood pressure decreased down to 240/105. Patient continues to deny specific symptoms related to her hypertension. Discussed with patient will discharge to home, please take blood pressure medication as prescribed by her primary care physician, please keep her primary care physician appointment next week with Dr. Gottlieb. Strict return to ER precautions and concerns. Will prescribe cyclobenzaprine and ibuprofen for low back strain/lumbar strain. Patient gave verbal understanding of and is amenable to ED discharge planning. Diagnosis lumbar strain, hypertensive urgency Dragon Disclaimer: Derick Disclaimer: This electronic medical record was generated, in whole or in part, using a voice recognition dictation system. Departure Departure Impression: Primary Impression: Low back strain Qualified Codes: S39.012A - Strain of muscle, fascia and tendon of lower back, initial encounter Additional Impression: Asymptomatic hypertensive urgency Disposition: HOME / SELF CARE / HOMELESS Condition: GOOD Referrals: JENN STEPHEN MD (PCP) Patient Instructions: Hypertension, Low Back Strain with [facility] Additional Instructions: You were seen today in the emergency department for low back strain. You were given a muscle relaxer and medication Toradol which you claimed helped give you pain relief. I am prescribing you 5 mg cyclobenzaprine muscle relaxer and 600 mg ibuprofen to take for returning back pains. Do not operate heavy machinery or drive vehicles while taking the muscle relaxer medication. Your blood pressure was very high in the emergency department today at 250/115. An extensive work-up was done today to rule out damage to your internal organs. Please keep your appointment with Dr. Gottlieb coming up this next week. Let Dr. Gottlieb know your head CT was unremarkable, your chest x-ray was unremarkable, your EKG did show new ST inversion with less than 1 mm depression in leads V3, V4, V5, and V6. This is a new change from your previous EKG performed on April 172020 here at [facility]. I have provided copies of both EKGs to take with you to your appointment. Please let Dr. Gottlieb know of the following lab work completed today in the emergency department. WBC equals 7.3, Hgb equals 10.8, HCT equals 33.1, sodium 139, potassium 4.3, chloride 104, carbon dioxide 26, creatinine 1.0, BUN 18, troponin I high-sensitivity 6, NT proBNP 933, liver enzymes negative. Urinalysis negative, no hematuria, no proteinuria, no urine bilirubin. Thank you for visiting our Emergency Department. It was a pleasure taking care of you today in the emergency department and we appreciate you trusting us with your care. If any additional problems come up don't hesitate to return to visit us. Please follow up with your primary care provider so they can plan additional care if needed and know about the problem that you had. If symptoms worsen come back to the Emergency Department. Any concerning symptoms that start such as chest pain, shortness of air, weakness or numbness on one side of the body, running high fevers or any other concerning symptoms return to the ER. EMERGENCY DEPARTMENT GENERAL DISCHARGE INSTRUCTIONS Thank you for coming to [facility] Emergency Department (ED) today and trusting us with you care. We trust that you had a positive experience in our Emergency Department. If you wish to speak to the department management, you may call the Director at [phone]. YOUR FOLLOW UP INSTRUCTIONS ARE FOLLOWS: 1. Do you have a private Doctor? If you do not have a private doctor, please ask for a resource list of physicians or clinics that may be able to assist you with follow up care. 2. The Emergency Physicain has interpreted your x-rays. The X-Ray specialist will also review them. If there is a change in the findings, you will be notified in 48 hours when at all possible. 3. A lab test or culture has been done, your results will be reviewed and you will be notified if you need a change in treatment. ADDITIONAL INSTRUCTIONS AND INFORMATION: 1. Your care today has been supervised by a physician who is specially trained in emergency care. Many problems require more than one evaluation for a complete diagnosis and treatment. We recommend that you schedule your follow up appointment as recommended to ensure complete treatment of you illness or injury. If you are unable to obtain follow up care and continue to have a problem, or if your condition worsens, we recommend that you return to the ED. 2. We are not able to safely determine your condition over the phone nor are we able to give sound medical advice over the phone. For these safety reasons, if you call for medical advice we will ask you to come to the ED for further evaluation. 3. If you have any questions regarding these discharge instructions please call the ED at [phone]. SAFETY INFORMATION: In the interest of safety, wellness, and injury prevention; we encourage you to wear your sealbelt, if you smoke; quite smoking, and we encourage family to use a protective helmet for bicycling and other sporting events that present an increased risk for head injury. IF YOUR SYMPTOMS WORSEN OR NEW SYMPTOMS DEVELOP, OR YOU HAVE CONCERNS ABOUT YOUR CONDITION; OR IF YOUR CONDITION WORSENS WHILE YOU ARE WAITING FOR YOUR FOLLOW UP APPOINTMENT; EITHER CONTACT YOUR PRIMARY CARE DOCTOR, THE PHYSICIAN WHOSE NAME AND NUMBER YOU WERE GIVEN, OR RETURN TO THE ED IMMEDIATELY. Scripts Ibuprofen (IBUPROFEN) 600 Mg Tablet 600 MG PO PRN Q6HRS PRN for INFLAMMATION, #30 TAB 0 Refills Prov: ZORAN ALVARENGA APRN 08/10/21 Cyclobenzaprine Hcl (CYCLOBENZAPRINE HCL) 5 Mg Tablet 1 TAB PO TID PRN for muscle cramping, #12 TAB 0 Refills Prov: ZORAN ALVARENGA APRN 08/10/21 ZORAN ALVARENGA APRN Aug 10, 2021 14:46
--- NOTE | 2021-08-10 19:17 | EKG ---
[facility] [address] [place] [address] Test Date: 2021-08-10 Test Time: 12:19:08 Pat Name: MIKE ALEJANDRO Department: Room: Gender: F [employer]ger: : 1950 Requested By: ZORAN ALVARENGA Order Number: [id number] Reading MD: Measurements Intervals [place] Rate: 84 P: 62 UT: 120 QRS: 23 QRSD: 80 T: -3 QT: 358 QTc: 426 Interpretive Statements SINUS RHYTHM LVH WITH REPOLARIZATION ABNORMALITY ABNORMAL ECG RI6.01 No previous ECG available for comparison
== END 2021-08-10 14:45 | disposition home or self-care (01) ==
LOC: ER 10:52
DX: S39.012A Strain of muscle, fascia and tendon of lower back, initial encounter (principal); F17.200 Nicotine dependence, unspecified, uncomplicated; E11.9 Type 2 diabetes mellitus without complications; I10 Essential (primary) hypertension; I16.0 Hypertensive urgency; X58.XXXA Exposure to other specified factors, initial encounter; Y93.89 Activity, other specified; Y92.89 Other specified places as the place of occurrence of the external cause; Y99.8 Other external cause status
CPT/HCPCS: 36415; 70450; 71045; 80053; 81001; 83880; 84484; 85025; 87086; 93005; 96374; 96375; 99285; J1885; J3490